=== PATIENT | female | born 1965 | race Caucasian/White ===

== ENCOUNTER 2019-09-10 11:49 | Inpatient (IN) ==
[2019-09-10] MEDS ORDERED: MoRPHine SULFATE 4 MG/ML 1 ML CARP\\VIAL IV STA ×2 (12:56→13:59)
[2019-09-10] MEDS ORDERED: PROMETHAZINE 12.5 MG/50.5 ML BAG IV STA (12:58)
[2019-09-10] MEDS ORDERED: SODIUM CHLORIDE 0.9% 1000ML 1,000 ML IV SCH (13:00)
--- NOTE | 2019-09-10 13:04 | Emergency Department Note ---
History of Present Illness General Chief complaint: Abdominal Pain Stated complaint: PAIN ALL OVER,CANCER PT Time Seen by Provider: 09/10/19 12:48 History of Present Illness Maximum Pain Intensity: 10 This is a 54-year-old female that presents to the emergency department via private vehicle with complaints of "pain all over, history of cancer". The patient states that beginning today around 10 AM she began with diffuse chest/backslash abdominal discomfort. 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 She is currently receiving chemotherapy through the cancer treatment center in [place]. She is concerned she may have an obstruction. Last food consumed was 0930. Last bowel movement was this morning and was normal. No blood in the bowel movement. She feels nauseous but has not vomited. She rates her overall discomfort at this time as a 10/10. No history of obstructions. Home Medications Home Medications Medication Instructions Recorded Confirmed Type capecitabine [Xeloda] See Rx Instructions .ROUTE .COMPLEX 06/03/19 09/10/19 History Saccharomyces boulardii [Florastor] 250 mg PO BID #20 cap 06/04/19 09/10/19 Rx ondansetron 4 mg PO Q6H PRN #14 tab 06/04/19 09/10/19 Rx filgrastim-sndz [Zarxio] 480 mcg IV DIRECTED 09/10/19 09/10/19 History Allergies Allergy/AdvReac Type Severity Reaction Status Date / Time epinephrine Allergy Intermediate heart Verified 09/10/19 12:23 palpitations, itching, rash, muscle pain lidocaine Allergy Intermediate heart Verified 09/10/19 12:23 palpitations, itching rash muscle pain Penicillins Allergy Mild rash and Verified 09/10/19 12:23 fever amoxicillin AdvReac Mild fever, rash Verified 09/10/19 12:23 Past Med/Surg History Medical History (Updated 09/10/19 @ 17:18 by Curly Tyson MD) Acid reflux Anxiety 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 no chemo or radiation Depression Duodenal adenocarcinoma Fibromyalgia Hyperlipidemia Migraine hx of and no longer a problem Surgical History History of tubal ligation Hx of bilateral breast reduction surgery (2013) S/P total hysterectomy and bilateral salpingo-oophorectomy d/t endometriosis Family History Mother Myocardial infarction, Onset Age: 58 Anxiety Uterine cancer Depression Diabetes Heart disease Hypertension Kidney disease Lung disease Lung cancer Multiple sclerosis Grandmother (Paternal) Colorectal cancer Breast cancer Father Prostate cancer, Onset Age: 72 Gallbladder disease Hypertension Brother Anxiety Drug abuse Hypertension Kidney stones Grandmother (Maternal) Anxiety Gallbladder disease Aunt Stomach cancer, Onset Age: 67 Esophageal cancer, Onset Age: 67 Denies family history of Ovarian cancer Social History Preferred Language: Kyrgyz Communication Ability: Effective Visual Impairment: No Limitations Hearing Ability: Normal Critical Care Specialist Required: No Beliefs That Will Affect Care: None marital status: Current Living Situation: Spouse Current Living Situation Comment: spouse and 7 children current occupational status: other current occupation: homemaker Other Information That Helps Us Care for You: No Feels Safe at Home: Yes Safety Concerns: Feels Safe At This Time Smoking Status: Never smoker Tobacco Type: cigarettes ; Age Started Using Tobacco: 17 ; Age Quit Using Tobacco: 38 ; packs per day: 0.75 ; Second Hand Exp osure: No ; Hx Alcohol Use: No Hx Substance Use: No Dental Care, Regularly: Yes Physical Activity Frequency: 1-2 Times per Week Physical Activity Frequency Comment: walking Seatbelt Use: always Review of Systems A total of 10 systems reviewed and were otherwise negative Physical Exam Vital Signs Vital Signs - 24 hr 09/10/19 12:01 09/10/19 13:00 09/10/19 13:30 Temperature 36.8 C Temperature Source Oral Pulse Rate 82 112 H 106 H Pulse Rate from SpO2 Sensor 112 H Respiratory Rate 18 24 26 H Respiratory Depth Normal Blood Pressure 115/74 130/76 Blood Pressure Mean 87 81 Pulse Oximetry 99 98 Oxygen Delivery Method Room Air Oxygen Flow Rate Sepsis Recent Fever Within 48 Hours No Sepsis New/Unexplained Change in Mental Status No Sepsis Action Taken by Nursing No Action Required Oxygen Flow Rate - Titration Pulse Oximetry Post Tiitration 09/10/19 13:34 09/10/19 14:00 09/10/19 14:30 Temperature Temperature Source Pulse Rate 107 H 109 H 116 H Pulse Rate from SpO2 Sensor Respiratory Rate 19 24 23 Respiratory Depth Blood Pressure 144/68 H 140/71 127/61 Blood Pressure Mean 96 96 83 Pulse Oximetry Oxygen Delivery Method Oxygen Flow Rate Sepsis Recent Fever Within 48 Hours Sepsis New/Unexplained Change in Mental Status Sepsis Action Taken by Nursing Oxygen Flow Rate - Titration Pulse Oximetry Post Tiitration 09/10/19 15:00 09/10/19 15:32 09/10/19 16:00 Temperature Temperature Source Pulse Rate 116 H 110 H 108 H Pulse Rate from SpO2 Sensor 110 H 108 H Respiratory Rate 23 24 13 Respiratory Depth Blood Pressure 116/61 144/70 H 107/59 L Blood Pressure Mean 77 94 72 Pulse Oximetry 94 92 Oxygen Delivery Method Oxygen Flow Rate Sepsis Recent Fever Within 48 Hours Sepsis New/Unexplained Change in Mental Status Sepsis Action Taken by Nursing Oxygen Flow Rate - Titration Pulse Oximetry Post Tiitration 09/10/19 16:30 09/10/19 16:35 09/10/19 17:00 Temperature Temperature Source Pulse Rate 115 H 111 H Pulse Rate from SpO2 Sensor 115 H 111 H Respiratory Rate 19 20 Respiratory Depth Blood Pressure 100/51 L 100/49 L Blood Pressure Mean 67 60 Pulse Oximetry 87 L 87 L 95 Oxygen Delivery Method Room Air Room Air Nasal Cannula Nasal Cannula Oxygen Flow Rate 0 2 Sepsis Recent Fever Within 48 Hours Sepsis New/Unexplained Change in Mental Status Sepsis Action Taken by Nursing Oxygen Flow Rate - Titration 2 Pulse Oximetry Post Tiitration 97 09/10/19 17:01 Temperature Temperature Source Pulse Rate 113 H Pulse Rate from SpO2 Sensor 112 H Respiratory Rate 20 Respiratory Depth Blood Pressure Blood Pressure Mean Pulse Oximetry 95 Oxygen Delivery Method Nasal Cannula Oxygen Flow Rate 2 Sepsis Recent Fever Within 48 Hours Sepsis New/Unexplained Change in Mental Status Sepsis Action Taken by Nursing Oxygen Flow Rate - Titration Pulse Oximetry Post Tiitration VITAL SIGNS - Vital signs and nursing notes were reviewed. Stable and afebrile. GENERAL 54-year-old female appearing her age who is appearing to be in pain, is in the position laying on her right side with the eyes closed. Communicates well with provider and answers questions appropriately. SKIN -faint erythema noted to the eye regions which appears to be chronic. HEAD - NC/AT. EYES - PERRL with EOMI bilaterally. Sclera anicteric. EARS - No deformities of external structures noted on gross examination bilaterally. NOSE - Midline and without cyanosis. No epistaxis or purulent drainage noted. Septum midline without deviation or septal hematoma noted. MOUTH/OROPHARYNX - Without perioral cyanosis. NECK - Neck with FROM. No nuchal rigidity. LUNGS - Chest wall symmetric without accessory muscle use, intercostals retractions, or central cyanosis. Normal vesicular breath sounds CTA B/L. No wheezes, rales, or rhonchi appreciated. CARDIAC - RRR with S1/S2. No murmur, rubs, or gallops appreciated. ABDOMEN - Abdominal contour normal without pulsations or visible masses. BS normoactive all four quadrants. No palpable masses appreciated on examination but there is diffuse abdominal tenderness. EXTREMITIES - No clubbing or peripheral cyanosis. No pretibial edema present. +5/5 strength noted in UE/LE bilaterally. NEUROLOGIC - Cranial nerves II through XII grossly intact. PSYCH - A&Ox3 and cooperates fully with examiner. Pt is very pleasant and interacts well with examiner. Course Administered Medications Lactated Ringer's (Lr) 1,000 mls @ 999 mls/hr IV .Q1H1M ONE Stop: 09/10/19 17:53 Last Admin: 09/10/19 17:20 Dose: 999 mls/hr Documented by: [id number] Ioversol (Optiray 320 125ml) 116 ml IV ONCE PRN PRN Reason: Interaction Checking Stop: 09/14/19 15:14 Last Admin: 09/10/19 15:18 Dose: 116 ml Documented by: [id number] Discontinued Medications Famotidine (Pepcid 20mg Iv Push) 20 mg IV ONE STA Stop: 09/10/19 16:55 Last Admin: 09/10/19 17:18 Dose: 20 mg Documented by: [id number] Sodium Chloride (Nss 1000ml) 1,000 mls @ 999 mls/hr IV .Q1H1M ZHANE Stop: 09/10/19 14:00 Last Infusion: 09/10/19 14:22 Dose: 0 mls/hr Documented by: [id number] Admin: 09/10/19 13:21 Dose: 999 mls/hr Documented by: [id number] Promethazine HCl (Phenergan) 12.5 mg in 50.5 mls @ 202 mls/hr IV NOW STA Stop: 09/10/19 13:12 Last Infusion: 09/10/19 13:40 Dose: 0 mls/hr Documented by: [id number] Admin: 09/10/19 13:25 Dose: 202 mls/hr Documented by: [id number] Morphine Sulfate (Morphine Sulfate) 4 mg IV NOW STA Stop: 09/10/19 12:57 Last Admin: 09/10/19 13:22 Dose: 4 mg Documented by: [id number] Morphine Sulfate (Morphine Sulfate) 4 mg IV NOW STA Stop: 09/10/19 14:00 Last Admin: 09/10/19 14:04 Dose: 4 mg Documented by: [id number] Medical Decision Making Laboratory Data Result diagrams: 09/10/19 13:10 09/10/19 13:10 Lab Results 09/10/19 09/10/19 09/10/19 Range/Units 13:10 13:10 13:10 WBC 4.68 L (4.8-10.8) K/uL RBC 3.31 L (4.2-5.4) M/uL Hgb 11.9 L (12.0-16.0) g/dL Hct 35.0 L (37-47) % MCV 105.7 H (80-100) fL MCH 36.0 H (25-34) pg MCHC 34.0 (32-36) g/dL RDW Std Deviation 60.5 H (36.4-46.3) fL RDW Coeff of Sarai 15.8 H (11.5-14.5) % Plt Count 73 L (130-400) K/uL Immature Gran % (Auto) 0.4 % Neut % (Auto) 91.7 % Lymph % (Auto) 4.9 % Sully % (Auto) 2.4 % Eos % (Auto) 0.6 % Baso % (Auto) 0.0 % Immature Gran # (Auto) 0.02 (0.00-0.02) K/uL Neut # (Auto) 4.29 (1.4-6.5) K/uL Lymph # (Auto) 0.23 L (1.2-3.4) K/uL Sully # (Auto) 0.11 (0.11-0.59) K/uL Eos # (Auto) 0.03 (0-0.5) K/uL Baso # (Auto) 0.00 (0-0.2) K/uL Platelet Estimate Decreased L (Normal) Tear Drop Cells 1+ PT 10.7 (9.0-12.0) Seconds INR 1.0 (0.9-1.1) APTT 25.7 (21.0-31.0) Seconds PTT Ratio 0.9 Sodium 137 (136-145) mmol/L Potassium 4.0 (3.5-5.1) mmol/L Chloride 105 (98-107) mmol/L Carbon Dioxide 26 (21-32) mmol/L Anion Gap 6.0 (3-11) BUN 9 (7-18) mg/dl Creatinine 0.66 (0.6-1.2) mg/dl Est Cr Clr Drug Dosing 105.0 ml/min Est GFR ( Amer) 114.5 Est GFR (Non-Af Amer) 98.8 BUN/Creatinine Ratio 14.3 (10-20) Glucose 110 H (70-99) mg/dl Lactate (0.4-2.0) mmol/L Calcium 9.6 (8.5-10.1) mg/dl Magnesium 1.8 (1.8-2.4) mg/dl Total Bilirubin 2.5 H (0.2-1) mg/dl AST 147 H (15-37) U/L ALT 69 (12-78) U/L Alkaline Phosphatase 278 H (45-117) U/L Troponin I < 0.015 (0-0.045) ng/ml Total Protein 7.0 (6.4-8.2) gm/dl Albumin 3.2 L (3.4-5.0) gm/dl Globulin 3.8 (2.5-4.0) gm/dl Albumin/Globulin Ratio 0.9 (0.9-2) Lipase 79 (73-393) U/L Urine Color Urine Appearance (Clear) Urine pH (4.5-7.5) Ur Specific Clark (1.000-1.030) Urine Protein (Negative) Urine Glucose (UA) (Negative) Urine Ketones (Negative) Urine Blood (Negative) Urine Nitrite (Negative) Urine Bilirubin (Negative) Urine Urobilinogen (Negative) Ur Leukocyte Esterase (Negative) 09/10/19 09/10/19 Range/Units 13:10 13:10 WBC (4.8-10.8) K/uL RBC (4.2-5.4) M/uL Hgb (12.0-16.0) g/dL Hct (37-47) % MCV (80-100) fL MCH (25-34) pg MCHC (32-36) g/dL RDW Std Deviation (36.4-46.3) fL RDW Coeff of Sarai (11.5-14.5) % Plt Count (130-400) K/uL Immature Gran % (Auto) % Neut % (Auto) % Lymph % (Auto) % Sully % (Auto) % Eos % (Auto) % Baso % (Auto) % Immature Gran # (Auto) (0.00-0.02) K/uL Neut # (Auto) (1.4-6.5) K/uL Lymph # (Auto) (1.2-3.4) K/uL Sully # (Auto) (0.11-0.59) K/uL Eos # (Auto) (0-0.5) K/uL Baso # (Auto) (0-0.2) K/uL Platelet Estimate (Normal) Tear Drop Cells PT (9.0-12.0) Seconds INR (0.9-1.1) APTT (21.0-31.0) Seconds PTT Ratio Sodium (136-145) mmol/L Potassium (3.5-5.1) mmol/L Chloride (98-107) mmol/L Carbon Dioxide (21-32) mmol/L Anion Gap (3-11) BUN (7-18) mg/dl Creatinine (0.6-1.2) mg/dl Est Cr Clr Drug Dosing ml/min Est GFR ( Amer) Est GFR (Non-Af Amer) BUN/Creatinine Ratio (10-20) Glucose (70-99) mg/dl Lactate 2.0 (0.4-2.0) mmol/L Calcium (8.5-10.1) mg/dl Magnesium (1.8-2.4) mg/dl Total Bilirubin (0.2-1) mg/dl AST (15-37) U/L ALT (12-78) U/L Alkaline Phosphatase (45-117) U/L Troponin I (0-0.045) ng/ml Total Protein (6.4-8.2) gm/dl Albumin (3.4-5.0) gm/dl Globulin (2.5-4.0) gm/dl Albumin/Globulin Ratio (0.9-2) Lipase (73-393) U/L Urine Color Yellow Urine Appearance Clear (Clear) Urine pH 6.5 (4.5-7.5) Ur Specific Clark 1.013 (1.000-1.030) Urine Protein Negative (Negative) Urine Glucose (UA) Negative (Negative) Urine Ketones Negative (Negative) Urine Blood Negative (Negative) Urine Nitrite Negative (Negative) Urine Bilirubin Negative (Negative) Urine Urobilinogen Negative (Negative) Ur Leukocyte Esterase Negative (Negative) Imaging Data Radiologist's Impression: XR chest 1V portable HISTORY: 54 years-old Female chest and abd pain acute chest and abdominal pain COMPARISON: PET CT 03/19/2019, chest radiograph 06/03/2019 TECHNIQUE: Portable AP view the chest FINDINGS: Cardiac silhouette is mildly enlarged, unchanged. Right subclavian Uvcvzx-y-Uisr catheter is unchanged. There is no pneumothorax, pleural effusion, airspace consolidation or overt pulmonary edema. IMPRESSION: No acute process. ACT 112: Negative or not required by law. The above report was generated using voice recognition software. It may contain grammatical, syntax or spelling errors. Electronically signed by: Kenneth Hook M.D. 09/10/2019 1:[address] ANGIOGRAPHY OF THE CHEST, PULMONARY EMBOLUS PROTOCOL CLINICAL HISTORY: Shortness of breath. COMPARISON STUDY: PET/CT March 19, 2019. Chest radiograph performed earlier today. TECHNIQUE: Following IV administration of 116 mL of Optiray-320, helical axial images of the chest were obtained utilizing the pulmonary embolus protocol. Maximal intensity projections and sagittal and coronal reformats were viewed on an independent 3D workstation. IV contrast was administered without complication. Automated exposure control was utilized for the study. A dose lowering technique was utilized adhering to the principles of ALARA. CT DOSE: 1371.26 mGycm FINDINGS: No pulmonary emboli are identified. A right subclavian Svjrhe-t-Cobc is in place. The size of the heart is at the upper limits of normal. There is no pericardial effusion. No enlarged axillary, mediastinal or hilar lymph nodes are present. The enlarged left supraclavicular lymph nodes on PET/CT of March 19, 2019 are now normal in size. Central airways are patent. Groundglass opacities favor atelectasis. There is no consolidation to suggest pneumonia. Mild interlobular septal thickening is noted. Abdomen and pelvis will be reported separately. Biliary ductal dilatation is better depicted on that exam. IMPRESSION: 1. No pulmonary emboli identified. 2. No consolidation to suggest pneumonia. 3. Interlobular septal thickening which favors mild pulmonary edema. 4. Interval decrease in size of the left supraclavicular lymphadenopathy shown on PET/CT of March 19, 2019. ACT 112: Negative or not required by law. Electronically signed by: Manuel Clemons M.D. 09/10/2019 3:43 PM A[address]EN AND PELVIS CT WITH IV CONTRAST HISTORY: Chest and abdominal pain in a patient with history of duodenal carcinoma chest and abd pain, stage 4 adenocarcinoma TECHNIQUE: Multiaxial CT images of the abdomen and pelvis were performed following the IV administration of 116 cc of Optiray 320, A dose lowering technique was utilized adhering to the principles of ALARA. COMPARISON STUDY: CTA chest of same day, CT abdomen and pelvis 06/03/2019 FINDINGS: The lung bases are generally clear. No pneumatosis or pneumoperitoneum. The spleen is enlarged measuring up to 15.9 cm in length, previously measuring up to 14.3 cm. Unremarkable adrenal glands. Moderate generalized pancreatic atrophy. 11 mm lesion of the inferior right hepatic lobe as previously described is not definitively seen on today's study. There is moderate gallbladder distention with mild gallbladder wall thickening and mucosal hyperenhancement which is unchanged from comparison. There is enhancement of the biliary tree with moderate intrahepatic biliary ductal dilation, unchanged. Debris, air and fluid is noted within the common bile duct stent which appears to be in satisfactory stable positioning. Unchanged wall thickening involving the second portion of the duodenum is compatible with patient's known primary carcinoma. No new or progressive adenopathy. There is mild inflammatory stranding stranding the uncinate process of the pancreas and proximal duodenum descending into the mid mesentery. Air is noted within the pancreatic duct. Duodenal air-fluid level. No bowel obstruction. Mild wall thickening of the ascending colon is likely secondary to partial distention. Appendix not definitively seen Unremarkable appearance of the kidneys. Moderate urinary bladder distention. Hysterectomy. No adnexal mass lesions. Calcified plaque the abdominal aorta without aneurysm. Soft tissues are unremarkable. Bones appear intact. No suspicious bone lesions. IMPRESSION: 1. Unchanged wall thickening involving the second portion the duodenum corresponds to the patient's known primary duodenal carcinoma. 2. No new adenopathy or evidence of progressive metastatic disease. 3. Mild inflammatory stranding surrounding the uncinate process of the pancreas and duodenum may be on a posttreatment related basis versus acute pancreatitis. Correlate with lipase. 4. Stable positioning of the common bile duct stent. 5. Moderate gallbladder distention with gallbladder wall thickening, intrahepatic and extrahepatic biliary ductal dilation appears similar from comparison. 6. Additional findings as above. ACT 112: Negative or not required by law. The above report was generated using voice recognition software. It may contain grammatical, syntax or spelling errors. Electronically signed by: Kenneth Hook M.D. 09/10/2019 3:50 PM MDM Narrative Patient was seen and evaluated as above in room a 11. Review was performed of nursing notes and vital signs. I did review pertinent previous visits and patient history. After obtaining a thorough history and physical examination the above work up was performed. Patient has a history of stage IV adenocarcinoma of the duodenum. Today around 10 AM she began with severe chest and abdominal discomfort. She appears to be in a great deal of pain on examination. IV access was established. Labs were drawn. She was medicated with IV morphine and she notes that she did not do well with Zofran therefore Phenergan was given as she had this before she notes with relief. She was reevaluated with minimal improvement and more morphine was added. She was hydrated with fluids noting that she was tachycardic on arrival. Blood cultures and lactic acid were also drawn. CBC reveals pancytopenia. Platelet count is decreased here today at 73. Coags are normal. Metabolic panel reveals no evidence of kidney failure. T bili and AST are elevated. Alk phos 278. Troponin is negative. Urinalysis is negative. An EKG was obtained on arrival per my interpretation reveals normal sinus rhythm the rate of 77 bpm. QTc 418. There is no evidence of [facility] on this examination. A CT scan of the chest/abdomen pelvis were ordered given the patient's tachycardic state noting diffuse abdominal and chest discomfort on presentation. Given the patient's history of cancer is felt that these are warranted. Results as above. Interlobular septal thickening favoring mild pulmonary edema, there is also unchanged wall thickening following the second portion of the duodenum, noninflammatory strandings evolving the [place] process of the pancreas and duodenum may be on a posttreatment basis versus acute pancreatitis, moderate gallbladder distention but this is similar to previous. The patient although by CT does not exhibit any emergent surgical process I do believe that further evaluation in the inpatient setting is warranted as she is persistently tachycardic despite fluid hydration here, and given the history of malignancy with presentation to believe that this would be warranted. I discussed the case with the hospitalist. While in the department, I personally reevaluated the patient several times and each time the patient was found to be resting comfortably but appeared to be tired. She was informed upon findings and was amenable to staying. No evidence of infectious process on examination for source. Cultures pending. Lactic acid normal. Case was discussed with the attending physician. EKG was reviewed by myself and found to be Normal Sinus Rhythm at a rate of 77 beats per minute and per my interpretation reveals normal sinus rhythm with a QTC of 418. No definite ST elevation. And when compared to previous EKG of June 03, 2019 is similar. An order was placed for continuous cardiac monitoring. The monitor shows a rate of 113 bpm with sinus tachycardia. I attest that I have personally reviewed the patient medication list. I attest that I have reviewed the patient's blood pressure and it was found to be normal on arrival. GCS: 15 In the evaluation and treatment of this patient, the following differential diagnoses were considered: MN, ASC, Dysrhythmia, Angina, Mediastinitis, GERD, Esophagitis, PE, Pneumonia, Bronchitis, Costochondritis, Rib Fracture, Ascending Cholangitis, Cholydocholithiasis, Bowel Obstruction, PE, Amongst Others. Impression & Plan Acute generalized abdominal pain, Duodenal adenocarcinoma, Acute pancreatitis Discharge Plan Visit Data Chief Complaint: Abdominal Pain Stated Complaint: PAIN ALL OVER,CANCER PT ED Provider: Brandt Vance ED Midlevel Provider: Carlos Mon Discharge Problem: Acute generalized abdominal pain, Duodenal adenocarcinoma, Acute pancreatitis Forms Stand Alone Forms: My [facility] [email or web address] Prescriptions Prescriptions: No Action capecitabine [Xeloda] 500 mg tablet See Rx Instructions .ROUTE .COMPLEX RF: 0 ondansetron 4 mg tablet,disintegrating 4 mg PO Q6H PRN (Reason: nausea and vomiting) Qty: 14 RF: 0 Saccharomyces boulardii [Florastor] 250 mg capsule 250 mg PO BID Qty: 20 RF: 0 Zarxio 480 mcg/0.8 mL syringe 480 mcg IV DIRECTED RF: 0 Referrals Referrals: Jenny Valdez DO [Primary Care Provider] -
--- NOTE | 2019-09-10 13:13 | XRay Report ---
XR chest 1V portable HISTORY: 54 years-old Female chest and abd pain acute chest and abdominal pain COMPARISON: PET CT 03/19/2019, chest radiograph 06/03/2019 TECHNIQUE: Portable AP view the chest FINDINGS: Cardiac silhouette is mildly enlarged, unchanged. Right subclavian Qojxjx-l-Atpi catheter is unchange d. There is no pneumothorax, pleural effusion, airspace consolidation or overt pulmonary edema. IMPRESSION: No acute process. ACT 112: Negative or not required by law. The above report was generated using voice recognition software. It may contain grammatical, syntax o r spelling errors. Electronically signed by: Kenneth Hook M.D. 09/10/2019 1:12 PM
[2019-09-10 13:27] LABS: Appearance Urine Clear (Clear); Bilirubin Urine Negative (Negative); Blood Urine Negative (Negative); Color Urine Yellow; Glucose Urine UA Negative (Negative); Ketones Urine Negative (Negative); Leukocyte Esterase Urine Negative (Negative); Nitrite Urine Negative (Negative); Protein Urine Negative (Negative); Specific Gravity Urine 1.013 (1.000-1.030); Urobilinogen Urine Negative (Negative); pH Urine 6.5 (4.5-7.5)
[2019-09-10 13:39] LABS: Hemoglobin 11.9 g/dL (12.0-16.0); Mean Corpuscular Volume 105.7 fL (80-100); Partial Thromboplastin Ratio 0.9; Partial Thromboplastin Time 25.7 Seconds (21.0-31.0); Prothrombin Time 10.7 Seconds (9.0-12.0); RDW Coefficient of Variation 15.8 % (11.5-14.5); RDW Standard Deviation 60.5 fL (36.4-46.3); Red Blood Count 3.31 M/uL (4.2-5.4); White Blood Count 4.68 K/uL (4.8-10.8)
[2019-09-10 13:44] LABS: Platelet Count 73 K/uL (130-400)
[2019-09-10 13:45] LABS: Alanine Aminotransferase 69 U/L (12-78); Albumin Level 3.2 gm/dl (3.4-5.0); Aspartate Aminotransferase 147 U/L (15-37); BUN Creatinine Ratio 14.3 (10-20); Blood Urea Nitrogen 9 mg/dl (7-18); Calcium 9.6 mg/dl (8.5-10.1); Carbon Dioxide 26 mmol/L (21-32); Chloride 105 mmol/L (98-107); Est GFR (African American) 114.5; Est GFR (Non-African American) 98.8; Glucose 110 mg/dl (70-99); Lipase 79 U/L (73-393); Magnesium 1.8 mg/dl (1.8-2.4); Sodium 137 mmol/L (136-145)
[2019-09-10 13:50] LABS: Albumin Globulin Ratio 0.9 (0.9-2); Alkaline Phosphatase 278 U/L (45-117); Bilirubin,Total 2.5 mg/dl (0.2-1); Globulin 3.8 gm/dl (2.5-4.0); Troponin I < 0.015 ng/ml (0-0.045)
[2019-09-10 13:57] LABS: Eosinophils # (auto) 0.03 K/uL (0-0.5); Eosinophils % (auto) 0.6 %; Immature Granulocytes # (auto) 0.02 K/uL (0.00-0.02); Immature Granulocytes % (auto) 0.4 %; Lymphocytes # (auto) 0.23 K/uL (1.2-3.4); Lymphocytes % (auto) 4.9 %; Monocytes # (auto) 0.11 K/uL (0.11-0.59); Monocytes % (auto) 2.4 %; Neutrophils # (auto) 4.29 K/uL (1.4-6.5); Neutrophils % (auto) 91.7 %; Platelet Estimate Decreased (Normal); Tear Drop Cells 1+
[2019-09-10] MEDS ORDERED: OPTIRAY 320 125ml IV PRN (15:15)
--- NOTE | 2019-09-10 15:44 | CT Scan Report ---
CT ANGIOGRAPHY OF THE CHEST, PULMONARY EMBOLUS PROTOCOL CLINICAL HISTORY: Shortness of breath. COMPARISON STUDY: PET/CT March 19, 2019. Chest radiograph performed earlier today. TECHNIQUE: Following IV administration of 116 mL of Optiray-320, helical axial images of the chest we re obtained utilizing the pulmonary embolus protocol. Maximal intensity projections and sagittal and coronal reformats were viewed on an independent 3D workstation. IV contrast was administered withou t complication. Automated exposure control was utilized for the study. A dose lowering technique wa s utilized adhering to the principles of ALARA. CT DOSE: 1371.26 mGycm FINDINGS: No pulmonary emboli are identified. A right subclavian Qkjqxm-n-Fanj is in place. The size of the heart is at the upper limits of normal. There is no pericardial effusion. No enlarged axillar y, mediastinal or hilar lymph nodes are present. The enlarged left supraclavicular lymph nodes on PET /CT of March 19, 2019 are now normal in size. Central airways are patent. Groundglass opacities fa vor atelectasis. There is no consolidation to suggest pneumonia. Mild interlobular septal thickening is noted. Abdomen and pelvis will be reported separately. Biliary ductal dilatation is better depicte d on that exam. IMPRESSION: 1. No pulmonary emboli identified. 2. No consolidation to suggest pneumonia. 3. Interlobular septal thickening which favors mild pulmonary edema. 4. Interval decrease in size of the left supraclavicular lymphadenopathy shown on PET/CT of March 19, 2019. ACT 112: Negative or not required by law. Electronically signed by: Manuel Clemons M.D. 09/10/2019 3:43 PM
--- NOTE | 2019-09-10 15:51 | CT Scan Report ---
ABDOMEN AND PELVIS CT WITH IV CONTRAST HISTORY: Chest and abdominal pain in a patient with history of duodenal carcinoma chest and abd pain , stage 4 adenocarcinoma TECHNIQUE: Multiaxial CT images of the abdomen and pelvis were performed following the IV administrat ion of 116 cc of Optiray 320, A dose lowering technique was utilized adhering to the principles of A BRANDT. COMPARISON STUDY: CTA chest of same day, CT abdomen and pelvis 06/03/2019 FINDINGS: The lung bases are generally clear. No pneumatosis or pneumoperitoneum. The spleen is enlarged measur ing up to 15.9 cm in length, previously measuring up to 14.3 cm. Unremarkable adrenal glands. Moderat e generalized pancreatic atrophy. 11 mm lesion of the inferior right hepatic lobe as previously descr ibed is not definitively seen on today's study. There is moderate gallbladder distention with mild ga llbladder wall thickening and mucosal hyperenhancement which is unchanged from comparison. There is e nhancement of the biliary tree with moderate intrahepatic biliary ductal dilation, unchanged. Debris, air and fluid is noted within the common bile duct stent which appears to be in satisfactory stable positioning. Unchanged wall thickening involving the second portion of the duodenum is compatible wit h patient's known primary carcinoma. No new or progressive adenopathy. There is mild inflammatory str anding stranding the uncinate process of the pancreas and proximal duodenum descending into the mid m esentery. Air is noted within the pancreatic duct. Duodenal air-fluid level. No bowel obstruction. Mi ld wall thickening of the ascending colon is likely secondary to partial distention. Appendix not def initively seen Unremarkable appearance of the kidneys. Moderate urinary bladder distention. Hysterectomy. No adnexal mass lesions. Calcified plaque the abdominal aorta without aneurysm. Soft tissues are unremarkable. Bones appear intact. No suspicious bone lesions. IMPRESSION: 1. Unchanged wall thickening involving the second portion the duodenum corresponds to the patient's k nown primary duodenal carcinoma. 2. No new adenopathy or evidence of progressive metastatic disease. 3. Mild inflammatory stranding surrounding the uncinate process of the pancreas and duodenum may be o n a posttreatment related basis versus acute pancreatitis. Correlate with lipase. 4. Stable positioning of the common bile duct stent. 5. Moderate gallbladder distention with gallbladder wall thickening, intrahepatic and extrahepatic bi liary ductal dilation appears similar from comparison. 6. Additional findings as above. ACT 112: Negative or not required by law. The above report was generated using voice recognition software. It may contain grammatical, syntax o r spelling errors. Electronically signed by: Kenneth Hook M.D. 09/10/2019 3:50 PM
--- NOTE | 2019-09-10 16:40 | History & Physical Report ---
Date of Service September 10, 2019 Assessment & Plan (1) Epigastric pain: Unclear exact etiology but inflammation on CT suggestive of pancreatitis although lipase normal (?due to atrophy). Possible just gastritis after stopping pantoprazole in May Possible temporary obstruction (duodenal or biliary) now relieved with secondary duodenitis No infective source found but if febrile overnight, start antibiotics empirically for abdominal (suspect duodenal/biliary source) and follow blood cultures ?prior episode due to biliary obstruction relieved with stent (2) Acute pancreatitis: Based on imaging and epigastric pain. IV fluids total 3L bolus, then LR 150ml/hr overnight IV ondansetron PRN, Phenergan PRN for nausea or vomiting Dilaudid PRN for pain MRCP to assess biliary patency with stent Repeat CMP in AM to assess if LFTs continue to increase Consult gastroenterology for AM (3) Acid reflux: Recently stopped PPI in May. May explain some of her epigastric pain IV famotidine given in ER, will continue (4) Duodenal adenocarcinoma: Stage IV On palliative chemotherapy with Oxaliplatin and Xeloda (cycle 7). CT in May was after cycle 4. Under [facility] in [place] (Dr Curtis Ellison) (5) Thrombocytopenia: Monitor in AM. If not decreasing can start on VTE chemical prophylaixs (6) Rash: Patient reports plan for biopsy for this but it reoccurs every year, worse on chemotherapy and having moved with more pine tree pollen. Monitor for now (7) DVT prophylaxis: SCDs If platelets > 50 and no plan for intervention can start chemical prophylaxis tomorrow Admission and Anticipated Discharge Date Admission Date: 09/10/2019 History of Present Illness Chief Complaint: Epigastric pain Primary Care Provider: DO Suzanne Luo is a 54 year old female with stage IV duodenal adenocarcinoma who presents to the ER with sudden onset abdominal pain. She reports sudden onset severe 10/10 epigastric pain that radiates around her back, started approximately 10-15 minutes after eating breakfast this morning (tea with honey and peanut butter toast) which was not unusual for her. She reports having a similar pain back in April although milder at that time when she was diagnosed with biliary obstruction and reported having a nerve block and biliary stent placed in [place]. After the pain started she called her oncology office in [place] and advised her to go to the ER. She denies any fevers or chills but has always been cold since starting on her chemotherapy oxaliplatin and Xeloda. Zarxio listed as medication but only required this once when her counts were low in July. Allergies Allergy/AdvReac Type Severity Reaction Status Date / Time epinephrine Allergy Intermediate heart Verified 09/10/19 12:23 palpitations, itching, rash, muscle pain lidocaine Allergy Intermediate heart Verified 09/10/19 12:23 palpitations, itching rash muscle pain Penicillins Allergy Mild rash and Verified 09/10/19 12:23 fever amoxicillin AdvReac Mild fever, rash Verified 09/10/19 12:23 Home Medications Home Medications Medication Instructions Recorded Confirmed Type capecitabine [Xeloda] See Rx Instructions .ROUTE .COMPLEX 06/03/19 09/10/19 History Saccharomyces boulardii [Florastor] 250 mg PO BID #20 cap 06/04/19 09/10/19 Rx ondansetron 4 mg PO Q6H PRN #14 tab 06/04/19 09/10/19 Rx filgrastim-sndz [Zarxio] 480 mcg IV DIRECTED 09/10/19 09/10/19 History Past Med/Surg History Medical History (Updated 09/11/19 @ 06:47 by Curly Tyson MD) Acid reflux Anxiety 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 no chemo or radiation Depression Duodenal adenocarcinoma Fibromyalgia Hyperlipidemia Migraine hx of and no longer a problem Surgical History History of tubal ligation Hx of bilateral breast reduction surgery (2013) S/P total hysterectomy and bilateral salpingo-oophorectomy d/t endometriosis Family History Mother Myocardial infarction, Onset Age: 58 Anxiety Uterine cancer Depression Diabetes Heart disease Hypertension Kidney disease Lung disease Lung cancer Multiple sclerosis Grandmother (Paternal) Colorectal cancer Breast cancer Father Prostate cancer, Onset Age: 72 Gallbladder disease Hypertension Brother Anxiety Drug abuse Hypertension Kidney stones Grandmother (Maternal) Anxiety Gallbladder disease Aunt Stomach cancer, Onset Age: 67 Esophageal cancer, Onset Age: 67 Denies family history of Ovarian cancer Social History Preferred Language: Latvian Communication Ability: Effective Visual Impairment: No Limitations Hearing Ability: Normal Material Planning Analyst Required: No Beliefs That Will Affect Care: None marital status: Current Living Situation: Spouse Current Living Situation Comment: spouse and 7 children current occupational status: other current occupation: homemaker Other Information That Helps Us Care for You: No Feels Safe at Home: Yes Safety Concerns: Feels Safe At This Time Smoking Status: Never smoker Tobacco Type: cigarettes ; Age Started Using Tobacco: 17 ; Age Quit Using Tobacco: 38 ; packs per day: 0.75 ; Second Hand Exposure: No ; Hx Alcohol Use: No Hx Substance Use: No Dental Care, Regularly: Yes Physical Activity Frequency: 1-2 Times per Week Physical Activity Frequency Comment: walking Seatbelt Use: always Review of Systems Review of Systems: All systems reviewed & are unremarkable except as noted in HPI & below Physical Exam Constitutional: well developed and + acute distress (epigastric pain); + not well nourished Eyes: PERRL, conjunctivae normal, anicteric sclerae ENMT: external ear and nose normal, oropharynx normal Neck: trachea midline, no thyromegaly Respiratory: normal respiratory effort; no respiratory distress Auscultation: lungs clear to auscultation bilaterally; no crackles, no rales, no rhonchi and no wheezes Cardiovascular: Rate/Rhythm: regular rhythm and + tachycardic Heart Sounds: no murmur Vessels: no JVD Extremities: normal capillary refill; no calf tenderness and no pedal edema Gastrointestinal (Abdomen): Percussion/Palpation: + abdomen tender (epigatric > diffuse) and abdomen soft; no guarding and abdomen not rigid Musculoskeletal: no cyanosis or clubbing, extremities motor strength 5/5 (grossly normal) Skin: multiple distinct multiple erythematous plaques around left eye and on back of bilateral hands Neurologic: moves all extremities and awake; no focal motor deficits Psychiatric: A+Ox3, euthymic affect Genitourinary: no CVA tenderness Results & Data Results & Data ([facility]) Vital Signs (Past 12 Hours) Vital Signs Temp Pulse Resp BP Pulse Ox 09/10/19 16:00 108 H 13 107/59 L 92 09/10/19 15:32 110 H 24 144/70 H 94 09/10/19 15:00 116 H 23 116/61 09/10/19 14:30 116 H 23 127/61 09/10/19 14:00 109 H 24 140/71 09/10/19 13:34 107 H 19 144/68 H 09/10/19 13:30 106 H 26 H 09/10/19 13:00 112 H 24 130/76 98 09/10/19 12:01 36.8 C 82 18 115/74 99 Diagnostic Findings XR chest 1V portable IMPRESSION: No acute process. CT ANGIOGRAPHY OF THE CHEST, PULMONARY EMBOLUS PROTOCOL IMPRESSION: 1. No pulmonary emboli identified. 2. No consolidation to suggest pneumonia. 3. Interlobular septal thickening which favors mild pulmonary edema. 4. Interval decrease in size of the left supraclavicular lymphadenopathy shown on PET/CT of March 19, 2019. ABDOMEN AND PELVIS CT WITH IV CONTRAST IMPRESSION: 1. Unchanged wall thickening involving the second portion the duodenum corresponds to the patient's known primary duodenal carcinoma. 2. No new adenopathy or evidence of progressive metastatic disease. 3. Mild inflammatory stranding surrounding the uncinate process of the pancreas and duodenum may be on a posttreatment related basis versus acute pancreatitis. Correlate with lipase. 4. Stable positioning of the common bile duct stent. 5. Moderate gallbladder distention with gallbladder wall thickening, intrahepatic and extrahepatic biliary ductal dilation appears similar from comp arison. 6. Additional findings as above. ECG Indication: abdominal pain Rate (beats per minute): 77 Rhythm: sinus tachycardia Findings: no acute ischemic change Comparison ECG Date: from (06/03/19) Change: no significant change Code Status & VTE Plan Code Status Full as per patient wishes VTE Prophylaxis Plan VTE Prophylaxis will be ordered: Yes PG Care Time/CCT Total # of Minutes Spent Total Time Spent with Patient: Total time spent is greater than 50% in coordination of care (as documented) at patient's floor/unit and/or counseling patient: Coding Level of Care Code 97635 Initial Inpt Care Lvl 3 Diagnoses Epigastric pain R10.13 Acute pancreatitis K85.90 Acid reflux K21.9 Duodenal adenocarcinoma C17.0 Thrombocytopenia D69.6 Rash R21 DVT prophylaxis Z29.9
[2019-09-10] MEDS ORDERED: LACTATED RINGER'S 1,000 ML IV ONE ×2 (16:53→19:45)
[2019-09-10] MEDS ORDERED: FAMOTIDINE 20MG/5ML IV PUSH IV STA (16:54)
[2019-09-10] MEDS ORDERED: ONDANSETRON INJ 2 MG/ML 2 ML VIAL IV PRN (19:49)
[2019-09-10] MEDS ORDERED: MAGNESIUM HYDROXIDE SUSP 30 ML UDC PO PRN (20:30)
[2019-09-10] MEDS ORDERED: POLYETHYLENE (MIRALAX) 17 GM PACK PO PRN (20:30)
[2019-09-10] MEDS ORDERED: ALUMINUM/MAGNESIUM SUSP 30 ML UDC PO PRN (20:30)
[2019-09-10] MEDS ORDERED: HYDROmorphone INJ 0.5 MG/0.5 ML SYR IV PRN (20:32)
[2019-09-10] MEDS ORDERED: HYDROmorphone INJ 1 MG/ML SYRINGE IV PRN (20:32)
[2019-09-10] MEDS: LACTATED RINGER'S 1,000 ML IV SCH (22:13)
[2019-09-11] MEDS: LACTATED RINGER'S 1,000 ML IV SCH ×3 (04:26→18:28)
--- NOTE | 2019-09-11 06:02 | Electrocardiogram Report ---
Test Reason : Blood Pressure : / mmHG Vent. Rate : 077 BPM Atrial Rate : 077 BPM P-R Int : 138 ms QRS Dur : 082 ms QT Int : 370 ms P-R-T Axes : 058 067 049 degrees QTc Int : 418 ms Normal sinus rhythm Nonspecific ST abnormality Abnormal ECG When compared with ECG of 03-JUN-2019 20:47, No significant change was found Confirmed by Deonte Durbin ([id number]) on 09/11/2019 6:01:49 AM Referred By: Confirmed By:Deonte Durbin
[2019-09-11 06:11] LABS: Mean Corpuscular Hgb Conc 32.7 g/dL (32-36)
[2019-09-11 06:26] LABS: Hematocrit (blood only) 30.6 % (37-47); Mean Corpuscular Hemoglobin 35.1 pg (25-34); Mean Corpuscular Volume 107.4 fL (80-100); RDW Coefficient of Variation 16.4 % (11.5-14.5); RDW Standard Deviation 63.8 fL (36.4-46.3); Red Blood Count 2.85 M/uL (4.2-5.4); White Blood Count 6.24 K/uL (4.8-10.8)
[2019-09-11 06:51] LABS: Albumin Level 2.4 gm/dl (3.4-5.0); BUN Creatinine Ratio 15.2 (10-20); Calcium 8.2 mg/dl (8.5-10.1); Creatinine Clr Calc Pharmacy 102.7 ml/min; Est GFR (African American) 113.3; Est GFR (Non-African American) 97.8; Potassium 3.9 mmol/L (3.5-5.1)
[2019-09-11 06:59] LABS: Albumin Globulin Ratio 0.7 (0.9-2); Bilirubin,Total 3.8 mg/dl (0.2-1); Globulin 3.3 gm/dl (2.5-4.0); Total Protein 5.7 gm/dl (6.4-8.2)
[2019-09-11 07:05] LABS: Platelet Count 66 K/uL (130-400)
[2019-09-11 07:06] LABS: Basophils # (auto) 0.01 K/uL (0-0.2); Basophils % (auto) 0.2 %; Eosinophils # (auto) 0.05 K/uL (0-0.5); Eosinophils % (auto) 0.8 %; Immature Granulocytes # (auto) 0.02 K/uL (0.00-0.02); Immature Granulocytes % (auto) 0.3 %; Lymphocytes # (auto) 0.62 K/uL (1.2-3.4); Lymphocytes % (auto) 9.9 %; Monocytes # (auto) 0.56 K/uL (0.11-0.59); Neutrophils # (auto) 4.98 K/uL (1.4-6.5); Neutrophils % (auto) 79.8 %; Platelet Estimate Decreased (Normal)
--- NOTE | 2019-09-11 07:48 | Magnetic Resonance Report ---
MR MRCP HISTORY: Epigastric pain with biliary stent in place TECHNIQUE: MRCP the abdomen was performed without contrast according to standard departmental protoco l. COMPARISON STUDY: Abdomen and pelvis CT 09/10/2019. FINDINGS: Bibasilar densities suggestive of dependent change/atelectasis. Motion artifact results in suboptimal evaluation. There is again noted a metal stent within the common bile duct. This appears i n good position. Artifact limits evaluation for patency. There is upstream intrahepatic and extrahepa tic bile duct dilatation, unchanged. The gallbladder remains moderately distended with mucosal thicke kamla and a small amount of pericholecystic fluid. This is similar to the prior study. This may be paula ctive versus an acute cholecystitis. No gallstones identified. Small amount of fluid surrounding the second portion of the duodenum which is thickened consistent with the patient's history of a duodenal mass. No hydronephrosis. The portal vein, splenic vein, and superior mesenteric vein appear patent. IMPRESSION: 1. There is again noted a metal stent within the common bile duct which appears in good position. Art ifacts limits evaluation for patency. 2. Intra and extrahepatic bile duct dilatation remains unchanged. 3. Moderately distended gallbladder with wall thickening and a small amount of pericholecystic fluid is also similar to the prior study. This may be reactive versus an acute cholecystitis. No gallstones identified. 4. Thickening and fluid within the second portion of the duodenum is again noted and consistent with the patient's known history of a duodenal malignancy. ACT 112: Negative or not required by law. Electronically signed by: Yash Scruggs M.D. 09/11/2019 7:46 AM
[2019-09-11] MEDS: FAMOTIDINE 20 MG in SYRINGE 3 ML IV SCH (09:42)
--- NOTE | 2019-09-11 11:41 | Hospitalist Progress Note ---
Date of Service September 11, 2019 Assessment & Plan (1) Epigastric pain: 54 yo F w/ PMHx. of duodenal adenocarcinoma stage IV, presenting with abdominal pain found to have labs concerning for cholangitis with elevated total bilirubin, AST/ALT, and alkaline phosphatase in the setting of stent placement in April 04. - placed on Ertapenem - continuing with 150 ml/hr LR - follow blood cultures - plan for ERCP tomorrow Adenocarcinoma of the duodenum stage IV - on palliative chemotherapy DVT: SCD Diet: NPO Code: full Admission and Anticipated Discharge Date Admission Date: September 10, 2019 Supervising Physician Co-Signing Physician Notes I personally examined the patient and verified all staples points of history and exam, discussed case, and agree with decision making with Dr Fernando. feeling reasonably ok. was hoping for [facility] cutler for continuity since that's where initial stent was put in but happy with care here and is totally ok with ercp here since transfer bureaucracy appears insurmountable. vitals noted nad heent nc at mmm breathing unlabored no accessory muscles good effort skin no rashes no pallor or icterus stent malfunction, concern on "smoldering" cholangitis picture -not unstable -started ertapenem -for ERCP -continue supportive care otherwise as above Subjective Doing okay this morning she was having pain that was in her lower abdomen. She explained that she was previously seen by Dr. Hernandez and Dr. Faustin at [facility] in [place]. Review of Systems Review of Systems: constitutional: denies fever or chills cardiac: denies chest pain or palpitations GI: denies nausea or vomiting pulm: denies cough or shortness of breath Neuro: admits headache : denies urinary frequency, urgency or frequency Physical Exam Constitutional: WD/WN, vitals as above Eyes: PERRL, conjunctivae normal, anicteric sclerae erythema and crusting around eyes ENMT: external ear and nose normal, oropharynx normal Neck: normal visual inspection Respiratory: normal respiratory effort, lungs clear to auscultation Cardiovascular: RRR, no murmur, no edema Gastrointestinal (Abdomen): normal bowel sounds, soft, nontender, no hepatosplenomegaly Psychiatric: A+Ox3, euthymic affect Results & Data Results & Data ([facility]) Vital Signs (Past 12 Hours) Vital Signs Temp Pulse Resp BP Pulse Ox 09/11/19 10:50 37.1 C 85 112/72 96 09/11/19 07:00 37.2 C 80 99/63 L 95 09/10/19 23:51 37.1 C 101 H 18 102/58 L 93 Resident Activity Tracking Resident Involvement: Resident Care Provided Care Provided: Adult Hospital Medicine
[2019-09-11] MEDS: ERTAPENEM SODIUM 1,000 MG in SODIUM CHLORIDE 0.9% 50 ML IV SCH (11:50)
--- NOTE | 2019-09-11 15:40 | Consultation Report ---
DATE OF CONSULTATION: 09/11/2019 REASON FOR EVALUATION: Abnormal liver tests and abdominal pain. HISTORY OF PRESENT ILLNESS: The patient is a 54-year-old, diagnosed with stage IV duodenal adenocarcinoma and had a metal stent placed in [place] 6 months ago. She was told at the time that it would need to be cleaned out periodically usually about every 6 months, which is about now. She is not sure if it is a covered or uncovered stent, but her liver tests are worsening and her biliary tree is somewhat dilated. MRCP and CT scan are of low resolution. It is not clear whether the tumor has overgrown the stent or whether there is some sludge material within the stent. Her physician in [place] was contacted and he preferred that the patient have an ERCP done here rather than transporting her to [place]. Her lipase is normal. HOME MEDICATIONS: Xeloda, Florastor, Zofran and filgrastim. ALLERGIES: EPINEPHRINE, LIDOCAINE, PENICILLIN, AMOXICILLIN. PAST MEDICAL HISTORY: Duodenal adenocarcinoma, depression, fibromyalgia, hyperlipidemia, migraine headaches, tubal ligation, breast reduction surgery. She has had hysterectomy and multiple laparoscopies for endometriosis. FAMILY HISTORY: Positive for uterine cancer in the mother. Grandmother had colon cancer on the father's side. Father had prostate cancer. SOCIAL HISTORY: The patient is , has 7 children. Is homemaker, lives at home. Does not smoke, does not drink any alcohol. PHYSICAL EXAMINATION: GENERAL: The patient has multiple tattoos on her arms. ABDOMEN: Shows low transverse scar and umbilical scars. There is some tenderness in the central and upper abdomen. No mass appreciated. SKIN: She does have a rash on the back of her hands and on her left upper eyelid. IMPRESSION AND PLAN: The patient has worsening liver tests probably from a clogged metal stent in her biliary tree either from tumor ingrowth or sludge. I plan on scheduling an ERCP for tomorrow afternoon to evaluate the stent and its patency and hopefully open it up and clean it out. GINNY
--- NOTE | 2019-09-11 18:30 | Anesthesiology Consultation ---
Date of Service September 11, 2019 Assessment & Plan (1) Encounter for pre-operative examination: Chart Review Chart Review: Acceptable Risk for Surgery and Patient NOT seen in Pre Admission Testing COVID-19 ROUTINE PREOP SCREENING TEST WAS NEGATIVE 09/11/2019. Consults Requested none History Surgery Operation Date: 09/12/19 07:00 Proposed Procedures p Endoscopic Retrograde Cholangiopancreatogram - Gómez Mcleod Height/Weight Height: 5 ft 5 in Weight: 90.6 kg Allergies Allergy/AdvReac Type Severity Reaction Status Date / Time epinephrine Allergy Intermediate heart Verified 09/10/19 12:23 palpitations, itching, rash, muscle pain lidocaine Allergy Intermediate heart Verified 09/10/19 12:23 palpitations, itching rash muscle pain Penicillins Allergy Mild rash and Verified 09/10/19 12:23 fever amoxicillin AdvReac Mild fever, rash Verified 09/10/19 12:23 Medications Home Medications Medication Instructions Recorded Confirmed Last Taken capecitabine [Xeloda] See Rx Instructions .ROUTE .COMPLEX 06/03/19 09/10/19 Unknown Saccharomyces boulardii [Florastor] 250 mg PO BID #20 cap 06/04/19 09/10/19 Unknown ondansetron 4 mg PO Q6H PRN #14 tab 06/04/19 09/10/19 Unknown filgrastim-sndz [Zarxio] 480 mcg IV DIRECTED 09/10/19 09/10/19 Unknown Active Medications Generic Name Dose Route Start Last Admin Trade Name Freq PRN Reason Stop Dose Admin Hydromorphone HCl 1 mg 09/10/19 20:32 09/11/19 16:14 Dilaudid IV 09/24/19 20:31 1 mg Q4H PRN Administration Severe Pain Lactated Ringer's 1,000 mls @ 150 mls/hr 09/10/19 20:45 09/11/19 18:28 Lr IV 10/10/19 20:44 150 mls/hr .Q6H40M ZHANE Administration Famotidine 20 mg/ Syringe 5 mls @ 2.5 mls/min 09/11/19 09:00 09/11/19 09:42 IV 10/11/19 08:59 2.5 mls/min QAM ZHANE Administration Ertapenem 1,000 mg/ Sodium 60 mls @ 100 mls/hr 09/11/19 11:00 09/11/19 12:23 Chloride IV 09/21/19 10:59 Infused Q24H ZHANE Infusion Miscellaneous 1 ea 09/11/19 00:00 09/11/19 16:08 Order Awaiting Action N/A 10/11/19 00:00 Not Given QS ZHANE Ondansetron HCl 4 mg 09/10/19 19:49 09/11/19 16:14 Zofran IV 10/10/19 19:48 4 mg Q4H PRN Administration Nausea or Vomiting Past Medical History Medical History (Updated 09/11/19 @ 18:28 by Carlin Quiroga MD) Acid reflux Anxiety 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 Depression Duodenal adenocarcinoma Fibromyalgia Hyperlipidemia Migraine hx of and no longer a problem acute pancreatitis, GERD, thrombocytopenia. 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 Past Family History Family History Mother Myocardial infarction, Onset Age: 58 Anxiety Uterine cancer Depression Diabetes Heart disease Hypertension Kidney disease Lung disease Lung cancer Multiple sclerosis Grandmother (Paternal) Colorectal cancer Breast cancer Father Prostate cancer, Onset Age: 72 Gallbladder disease Hypertension Brother Anxiety Drug abuse Hypertension Kidney stones Grandmother (Maternal) Anxiety Gallbladder disease Aunt Stomach cancer, Onset Age: 67 Esophageal cancer, Onset Age: 67 Denies family history of Ovarian cancer Past Surgical History Surgical History History of tubal ligation Hx of bilateral breast reduction surgery (2013) S/P total hysterectomy and bilateral salpingo-oophorectomy d/t endometriosis Social History Smoking Status: Never smoker tobacco type: cigarettes Hx Alcohol Use: No Alcohol type: hard liquor Hx Substance Use: No substance use type: does not use Physical Exam Vital Signs Last Vital Signs Temp 36.7 C 09/11/19 15:25 Pulse 91 H 09/11/19 15:25 Resp 18 09/11/19 15:25 BP 122/76 09/11/19 15:25 Pulse Ox 94 09/11/19 15:25 Testing Laboratory Results 09/11/19 05:38 09/11/19 05:38 PT 10.7 Seconds (9.0-12.0) 09/10/19 13:10 INR 1.0 (0.9-1.1) 09/10/19 13:10 APTT 25.7 Seconds (21.0-31.0) 09/10/19 13:10 Urine Color Yellow 09/10/19 13:10 Urine Appearance Clear (Clear) 09/10/19 13:10 Urine pH 6.5 (4.5-7.5) 09/10/19 13:10 Ur Specific [place] 1.013 (1.000-1.030) 09/10/19 13:10 Urine Protein Negative (Negative) 09/10/19 13:10 Urine Glucose (UA) Negative (Negative) 09/10/19 13:10 Urine Ketones Negative (Negative) 09/10/19 13:10 Urine Nitrite Negative (Negative) 09/10/19 13:10 Ur Leukocyte Esterase Negative (Negative) 09/10/19 13:10 09/10/19 13:55 Aerobic Blood Culture - Preliminary Blood No growth in Aerobic bottle after 24 hours. Anaerobic Blood Culture - Preliminary No growth in Anaerobic bottle after 24 hours. 09/10/19 13:02 Aerobic Blood Culture - Preliminary Blood No growth in Aerobic bottle after 24 hours. Anaerobic Blood Culture - Preliminary No growth in Anaerobic bottle after 24 hours. Electrocardiogram Date: 09/10/19 Findings: + NSR @ (77) Normal sinus rhythm Nonspecific ST abnormality Abnormal ECG When compared with ECG of 03-JUN-2019 20:47, No significant change was found Confirmed by Deonte Durbin ([id number]) on 09/11/2019 6:01:49 AM
--- NOTE | 2019-09-11 19:15 | Billing Data ---
Date of Service September 11, 2019 Coding Level of Care Code 11265 Subseq Hosp Care Lvl 3
[2019-09-11] MEDS: ACETAMINOPHEN 325 MG TAB PO PRN (22:59)
[2019-09-12] MEDS: LACTATED RINGER'S 1,000 ML IV SCH ×4 (01:14→20:52)
[2019-09-12] MEDS ORDERED: CIPROFLOXACIN / D5W 400 MG/200 ML BAG IV SCH (06:00)
[2019-09-12 06:19] LABS: Mean Corpuscular Hgb Conc 34.3 g/dL (32-36)
[2019-09-12 06:36] LABS: Hematocrit (blood only) 27.1 % (37-47); Hemoglobin 9.3 g/dL (12.0-16.0); Mean Corpuscular Hemoglobin 36.3 pg (25-34); Mean Corpuscular Volume 105.9 fL (80-100); RDW Coefficient of Variation 16.4 % (11.5-14.5); RDW Standard Deviation 63.4 fL (36.4-46.3); Red Blood Count 2.56 M/uL (4.2-5.4); White Blood Count 5.38 K/uL (4.8-10.8)
[2019-09-12 06:53] LABS: Basophils # (auto) 0.01 K/uL (0-0.2); Basophils % (auto) 0.2 %; Eosinophils # (auto) 0.06 K/uL (0-0.5); Eosinophils % (auto) 1.1 %; Immature Granulocytes # (auto) 0.02 K/uL (0.00-0.02); Immature Granulocytes % (auto) 0.4 %; Lymphocytes # (auto) 0.65 K/uL (1.2-3.4); Lymphocytes % (auto) 12.1 %; Monocytes # (auto) 0.66 K/uL (0.11-0.59); Monocytes % (auto) 12.3 %; Neutrophils # (auto) 3.98 K/uL (1.4-6.5); Neutrophils % (auto) 73.9 %; Platelet Count 41 K/uL (130-400); Platelet Estimate Decreased (Normal); Tear Drop Cells 1+
[2019-09-12 06:59] LABS: Albumin Level 2.2 gm/dl (3.4-5.0); BUN Creatinine Ratio 13.3 (10-20); Calcium 8.3 mg/dl (8.5-10.1); Creatinine Clr Calc Pharmacy 126.9 ml/min; Est GFR (African American) 121.5; Est GFR (Non-African American) 104.9; Potassium 3.4 mmol/L (3.5-5.1)
[2019-09-12 07:07] LABS: Albumin Globulin Ratio 0.7 (0.9-2); Bilirubin,Total 4.6 mg/dl (0.2-1); Total Protein 5.2 gm/dl (6.4-8.2)
[2019-09-12] MEDS: FAMOTIDINE 20 MG in SYRINGE 3 ML IV SCH (08:02)
[2019-09-12] MEDS: ACETAMINOPHEN 325 MG TAB PO PRN (08:09)
[2019-09-12] MEDS: ERTAPENEM SODIUM 1,000 MG in SODIUM CHLORIDE 0.9% 50 ML IV SCH (10:53)
[2019-09-12] MEDS: POTASSIUM CHLORIDE / WTR 10 MEQ/100 ML PLCT IV SCH ×4 (11:40→16:10)
[2019-09-12] MEDS ORDERED: CONRAY 60% 50 ML VIAL ONE (13:11)
[2019-09-12] MEDS ORDERED: ONDANSETRON INJ 2 MG/ML 2 ML VIAL ONE (13:46)
[2019-09-12] MEDS ORDERED: PROPOFOL IV EMULSION 10 MG/ML 20 ML VIAL IV ONE (13:46)
[2019-09-12] MEDS ORDERED: LIDOCAINE HCL 2% 2 ML VIAL/AMP(20MG/ML) INFIL ONE (13:46)
[2019-09-12] MEDS ORDERED: SUCCINYLCHOLINE CHLORIDE 20 MG/ML 10 ML VIAL IV ONE (13:46)
[2019-09-12] MEDS ORDERED: fentaNYL citrate 100 MCG/2 ML VIAL ONE (13:47)
[2019-09-12] MEDS ORDERED: INDOMETHACIN 50 MG SUPP PR ONE (13:51)
--- NOTE | 2019-09-12 13:54 | History & Physical Report ---
Date of Service September 12, 2019 History of Present Illness Chief Complaint: biliary blockage Primary Care Provider: Jenny Valdez DO For ERCP Allergies Allergy/AdvReac Type Severity Reaction Status Date / Time epinephrine Allergy Intermediate heart Verified 09/10/19 12:23 palpitations, itching, rash, muscle pain lidocaine Allergy Intermediate heart Verified 09/10/19 12:23 palpitations, itching rash muscle pain Penicillins Allergy Mild rash and Verified 09/10/19 12:23 fever amoxicillin AdvReac Mild fever, rash Verified 09/10/19 12:23 Home Medications Home Medications Medication Instructions Recorded Confirmed Type capecitabine [Xeloda] See Rx Instructions .ROUTE .COMPLEX 06/03/19 09/10/19 History Saccharomyces boulardii [Florastor] 250 mg PO BID #20 cap 06/04/19 09/10/19 Rx ondansetron 4 mg PO Q6H PRN #14 tab 06/04/19 09/10/19 Rx filgrastim-sndz [Zarxio] 480 mcg IV DIRECTED 09/10/19 09/10/19 History Past Med/Surg History Medical History (Updated 09/11/19 @ 18:28 by Carlin Quiroga MD) Acid reflux Anxiety 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 Depression Duodenal adenocarcinoma Fibromyalgia Hyperlipidemia Migraine hx of and no longer a problem Surgical History History of tubal ligation Hx of bilateral breast reduction surgery (2013) S/P total hysterectomy and bilateral salpingo-oophorectomy d/t endometriosis Family History Mother Myocardial infarction, Onset Age: 58 Anxiety Uterine cancer Depression Diabetes Heart disease Hypertension Kidney disease Lung disease Lung cancer Multiple sclerosis Grandmother (Paternal) Colorectal cancer Breast cancer Father Prostate cancer, Onset Age: 72 Gallbladder disease Hypertension Brother Anxiety Drug abuse Hypertension Kidney stones Grandmother (Maternal) Anxiety Gallbladder disease Aunt Stomach cancer, Onset Age: 67 Esophageal cancer, Onset Age: 67 Denies family history of Ovarian cancer Social History Preferred Language: Slovenian Communication Ability: Effective Visual Impairment: No Limitations Hearing Ability: Normal Granulating Blender Required: No Beliefs That Will Affect Care: None marital status: Current Living Situation: Spouse Current Living Situation Comment: spouse and 7 children current occupational status: other current occupation: homemaker Other Information That Helps Us Care for You: No Feels Safe at Home: Yes Safety Concerns: Feels Safe At This Time Smoking Status: Never smoker Tobacco Type: cigarettes ; Age Started Using Tobacco: 17 ; Age Quit Using Tobacco: 38 ; packs per day: 0.75 ; Second Hand Exposure: No ; Hx Alcohol Use: No Hx Substance Use: No Dental Care, Regularly: Yes Physical Activity Frequency: 1-2 Times per Week Physical Activity Frequency Comment: walking Seatbelt Use: always Physical Exam Constitutional: well developed Respiratory: normal respiratory effort Cardiovascular: Rate/Rhythm: regular rate and regular rhythm Gastrointestinal (Abdomen): Percussion/Palpation: abdomen soft Results & Data Vital Signs (Past 12 Hours) Vital Signs Temp Pulse Pulse Resp BP BP Pulse Ox 09/12/19 12:04 76 09/12/19 11:00 36.8 C 89 18 126/78 94 09/12/19 07:00 36.7 C 80 18 101/65 94 09/12/19 03:03 36.7 C 74 16 101/64 93 Code Status & VTE Plan VTE Prophylaxis Plan VTE Prophylaxis will be ordered: Yes
[2019-09-12] MEDS ORDERED: SODIUM CHLORIDE 0.9% 1000ML 1,000 ML IV SCH (14:00)
[2019-09-12] MEDS ORDERED: ONDANSETRON INJ 2 MG/ML 2 ML VIAL IV PRN (14:03)
[2019-09-12] MEDS ORDERED: ATROPINE SULFATE 0.1 MG/ML 10ML SYR IV PRN (14:03)
[2019-09-12] MEDS ORDERED: fentaNYL citrate 100 MCG/2 ML VIAL IV PRN (14:03)
--- NOTE | 2019-09-12 15:02 | GI REPORT ---
Patient Name: Suzanne Alvarez Procedure Date: 09/12/2019 12:36 PM Date of : 1965 Admit Type: Inpatient Age: 54 Gender: Female Attending MD: Gómez Mcleod MD Procedure: ERCP Providers: Gómez Mcleod MD Referring MD: Calin Anglin Indications: Abnormal abdominal MRI Medicines: General Anesthesia Complications: No immediate complications. Estimated Blood Loss: Estimated blood loss was minimal. Procedure: Pre-Anesthesia Assessment: - Prior to the procedure, a History and Physical was performed, and patient medications, allergies and sensitivities were reviewed. The patient's tolerance of previous anesthesia was reviewed. - The risks and benefits of the procedure and the sedation options and risks were discussed with the patient. All questions were answered and informed consent was obtained. After obtaining informed consent, the scope was passed under direct vision. Throughout the procedure, the patient's blood pressure, pulse, and oxygen saturations were monitored continuously. The Scope was introduced through the mouth, and advanced to the duodenum without successful cannulation. The ERCP was technically difficult and complex due to extrinsic compression. The patient tolerated the procedure well. Findings: The upper GI tract was traversed under direct vision without detailed examination. A large infiltrative mass with no bleeding was found in the second portion of the duodenum. The stent is obstructed by tumor ingrowth and the catheter will not pass into the lumen. Impression: - Malignant duodenal mass. Recommendation: - Return patient to [facility] for ongoing care. Gómez Mcleod M.D. Gómez Mcleod MD 09/12/2019 3:02:11 PM This report has been signed electronically. Note Initiated On: 09/12/2019 12:36 PM Number of Addenda: 0 I attest to the content of the Intraoperative Record and orders documented therein, exceptions below {[id number]}
--- NOTE | 2019-09-12 15:13 | Fluoroscopy Report ---
[place] ERCP biliary ductal CLINICAL HISTORY: EXPLORE DUCTS COMPARISON STUDY: MRCP 09/10/2019. FLUOROSCOPY TIME: 38 seconds. FINDINGS: 3 fluoroscopic spot images of the right upper quadrant were submitted. There is an endoscop e within the second portion of duodenum. The ampulla was cannulated. A metallic common bile duct sten t is noted. This is likely in good position. IMPRESSION: Fluoroscopy provided for ERCP ACT 112: Negative or not required by law. Electronically signed by: Yash Scruggs M.D. 09/12/2019 3:12 PM
--- NOTE | 2019-09-12 15:43 | Progress Notes ---
DATE: 09/12/2019 The patient had a reduction in her platelet count today down to 40,000 but no bleeding. She underwent an attempted ERCP to evaluate her bile duct and its patency. An upper endoscopy was performed and I was able to see the stent and there was some food debris trapped in it and I was able to clear that. I then passed the duodenoscope and the stent was somewhat distorted as it exited the bile duct and there was tumor ingrowth in the lumen of the stent. I was able to pass a guidewire blindly through the tumor, but was not able to advance the catheter safely without causing some bleeding. IMPRESSION: The patient has tumor ingrowth at the side of her biliary stent. I was unable to cannulate the duct and with a low platelet count there is a risk for bleeding that could not easily be controlled. The patient has obstructed bile duct from tumor ingrowth from her duodenal adenocarcinoma. She may be a candidate for percutaneous biliary drainage placement for palliation and may need to be transferred to [place] for this procedure.
--- NOTE | 2019-09-12 15:49 | Anesthesiology Progress Note ---
Date of Service September 12, 2019 Anesthesia Post Procedure Vital Signs Vital Signs: Temp Pulse Pulse Pulse Resp BP BP 09/12/19 15:40 81 14 121/66 09/12/19 15:30 82 18 122/67 09/12/19 15:20 86 12 124/65 09/12/19 15:10 36.6 C 91 H 19 81/59 L 09/12/19 13:47 37 C 95 H 16 118/73 09/12/19 11:00 36.8 C 89 18 126/78 09/12/19 08:00 76 09/12/19 07:00 36.7 C 80 18 101/65 09/12/19 03:03 36.7 C 74 16 101/64 09/12/19 00:33 110 H 09/11/19 23:50 37.5 C 09/11/19 22:57 38.5 C H 108 H 16 123/69 09/11/19 20:00 37.2 C 100 H 18 141/79 H 09/11/19 16:00 87 Pulse Ox 09/12/19 15:40 98 09/12/19 15:30 100 09/12/19 15:20 100 09/12/19 15:10 97 09/12/19 13:47 96 09/12/19 11:00 94 09/12/19 08:00 09/12/19 07:00 94 09/12/19 03:03 93 09/12/19 00:33 09/11/19 23:50 09/11/19 22:57 93 09/11/19 20:00 91 09/11/19 16:00 Pain Intensity Abdomen: Pain Intensity: 1 Transfer of Care Handoff Completed per policy Notes Mental Status: alert / awake / arousable Patient Amnestic to Procedure: Yes Nausea / Vomiting: adequately controlled Pain: adequately controlled Airway Patency, RR, SpO2: stable & adequate BP & HR: stable & adequate Hydration State: stable & adequate Anesthetic Complications: no major complications apparent
--- NOTE | 2019-09-12 19:52 | Discharge Summary ---
Date of Service September 12, 2019 Admission HPI Per Admitting Provider Suzanne Alvarez is a 54 year old female with stage IV duodenal adenocarcinoma who presents to the ER with sudden onset abdominal pain. She reports sudden onset severe 10/10 epigastric pain that radiates around her back, started approximately 10-15 minutes after eating breakfast this morning (tea with honey and peanut butter toast) which was not unusual for her. She reports having a similar pain back in April although milder at that time when she was diagnosed with biliary obstruction and reported having a nerve block and biliary stent placed in [place]. After the pain started she called her oncology office in [place] and advised her to go to the ER. She denies any fevers or chills but has always been cold since starting on her chemotherapy oxaliplatin and Xeloda. Zarxio listed as medication but only required this once when her counts were low in July. Admission Exam Per Admitting Provider Constitutional: well developed and + acute distress (epigastric pain); + not well nourished Eyes: PERRL, conjunctivae normal, anicteric sclerae ENMT: external ear and nose normal, oropharynx normal Neck: trachea midline, no thyromegaly Respiratory: normal respiratory effort; no respiratory distress Auscultation: lungs clear to auscultation bilaterally; no crackles, no rales, no rhonchi and no wheezes Cardiovascular: Rate/Rhythm: regular rhythm and + tachycardic Heart Sounds: no murmur Vessels: no JVD Extremities: normal capillary refill; no calf tenderness and no pedal edema Gastrointestinal (Abdomen): Percussion/Palpation: + abdomen tender (epigatric > diffuse) and abdomen soft; no guarding and abdomen not rigid Musculoskeletal: no cyanosis or clubbing, extremities motor strength 5/5 (grossly normal) Skin: multiple distinct multiple erythematous plaques around left eye and on back of bilateral hands Neurologic: moves all extremities and awake; no focal motor deficits Psychiatric: A+Ox3, euthymic affect Genitourinary: no CVA tenderness Principal Diagnosis biliary occlusion from cancer Discharge Exam Constitutional WD/WN, vitals as above Eyes PERRL, conjunctivae normal, anicteric sclerae ENMT external ear and nose normal, oropharynx normal Neck normal visual inspection Respiratory normal respiratory effort, lungs clear to auscultation Cardiovascular RRR, no murmur, no edema Gastrointestinal (Abdomen) normal bowel sounds, soft, nontender, no hepatosplenomegaly Psychiatric A+Ox3, euthymic affect Discharge Data Allergies Allergy/AdvReac Type Severity Reaction Status Date / Time epinephrine Allergy Intermediate heart Verified 09/10/19 12:23 palpitations, itching, rash, muscle pain lidocaine Allergy Intermediate heart Verified 09/10/19 12:23 palpitations, itching rash muscle pain Penicillins Allergy Mild rash and Verified 09/10/19 12:23 fever amoxicillin AdvReac Mild fever, rash Verified 09/10/19 12:23 Consultations 09/10/19 16:28 ED Decision to Admit Stat 09/10/19 19:49 Consult Gastroenterology Routine 09/11/19 10:46 Burn CD for patient Stat 09/11/19 13:24 Consult Gastroenterology Routine 09/12/19 17:45 Burn CD for patient Stat Procedures Performed Operation Date: 09/12/19 07:00 Actual Procedures p Esophagogastroduodenoscopy; Endoscopic Retrograde Cholangiopancreatogram(Not Applicable) - Gómez Perez Ordered Studies 09/10/19 12:56 CT abd pelvis IV con only Stat 09/10/19 14:08 CT angio chest PE protocol Stat 09/10/19 19:44 MR MRCP Stat 09/12/19 14:30 [place] ERCP biliary ductal Routine Hospital Course (1) Acute cholangitis: 54 yo F w/ PMHx. of duodenal adenocarcinoma stage IV, presenting with abdominal pain found to have labs concerning for cholangitis with elevated total bilirubin, AST/ALT, and alkaline phosphatase in the setting of stent placement in April 04. COVID negative (09/10) Cholangitis w/ elevation in total bili: 4.6, AST: 131 Alk phos.: 219 - MRCP on admission showed gallbladder was concerning for acute cholecystitis w/o visible gallstones and they were unable to evaluate the patency of the stent - CT A/P showed wall thickening of the 2nd portion of the duodenum as well as an inflammation of the uncinate and bile duct dilation. - placed on Ertapenem - following blood cultures - GI consulted ERCP performed per GI, "The patient had a reduction in her platelet count today down to 40,000 but no bleeding. She underwent an attempted ERCP to evaluate her bile duct and its patency. An upper endoscopy was performed and I was able to see the stent and there was some food debris trapped in it and I was able to clear that. I then passed the duodenoscope and the stent was somewhat distorted as it exited the bile duct and there was tumor ingrowth in the lumen of the stent. I was able to pass a guidewire blindly through the tumor, but was not able to advance the catheter safely without causing some bleeding. IMPRESSION: The patient has tumor ingrowth at the side of her biliary stent. I was unable to cannulate the duct and with a low platelet count there is a risk for bleeding that could not easily be controlled. The patient has obstructed bile duct from tumor ingrowth from her duodenal adenocarcinoma. She may be a candidate for percutaneous biliary drainage placement for palliation and may need to be transferred to [place] for this procedure." - Patient has a fentanyl patch for pain control Adenocarcinoma of the duodenum stage IV - on palliative chemotherapy, held due to concern for infection - transferred to cancer treatment center [facility] in [place] for continuity of care and potentially for perc. biliary drainage placement (2) Epigastric pain: (3) Duodenal adenocarcinoma: Total Time Total Time Spent Total Time Spent (In Minutes): <30 Discharge Plan Discharge Items Patient Disposition: [facility] Reason For Visit: PANCREATITIS Discharge Diagnosis: cholangitis Activity: Per Instructions section Non-emergency contact: Primary Care Provider and Oncologist Call non-emergency contact if: your symptoms worsen Follow-up/Referrals: Jenny Valdez DO [Primary Care Provider] - Diet: Nothing by Mouth Addtl Attending Provider Instructions: 54 yo F w/ PMHx. of duodenal adenocarcinoma stage IV, presenting with abdominal pain found to have labs concerning for cholangitis with elevated total bilirubin, AST/ALT, and alkaline phosphatase in the setting of stent placement in April 04. COVID negative (09/10) Cholangitis - placed on Ertapenem - IVF at 150 ml/hr LR - following blood cultures - total bili: 4.6, AST: 131 Alk phos.: 219 - MRCP on admission showed gallbladder was concerning for acute cholecystitis w/o visible gallstones and they were unable to evaluate the patency of the stent - CT A/P showed wall thickening of the 2nd portion of the duodenum as well as an inflammation of the uncinate and bile duct dilation. - GI consulted ERCP performed per GI, "The patient had a reduction in her platelet count today down to 40,000 but no bleeding. She underwent an attempted ERCP to evaluate her bile duct and its patency. An upper endoscopy was performed and I was able to see the stent and there was some food debris trapped in it and I was able to clear that. I then passed the duodenoscope and the stent was somewhat distorted as it exited the bile duct and there was tumor ingrowth in the lumen of the stent. I was able to pass a guidewire blindly through the tumor, but was not able to advance the catheter safely without causing some bleeding. IMPRESSION: The patient has tumor ingrowth at the side of her biliary stent. I was unable to cannulate the duct and with a low platelet count there is a risk for bleeding that could not easily be controlled. The patient has obstructed bile duct from tumor ingrowth from her duodenal adenocarcinoma. She may be a candidate for percutaneous biliary drainage placement for palliation and may need to be transferred to [place] for this procedure." - Patient has a fentanyl patch for pain control Adenocarcinoma of the duodenum stage IV - on palliative chemotherapy, held due to concern for infection Pending Studies at Discharge: Yes Studies:: blood cultures Stand-Alone Forms: [facility] Skilled Items Patient informed of condition?: Yes DNR: No Discharge Level of Care: Other Communicable Disease: No Discharge Prognosis: Stable Lines: Peripheral IV Urinary Catheter: No Medications and DC Order Prescriptions: Continued capecitabine [Xeloda] 500 mg tablet See Rx Instructions .ROUTE .COMPLEX RF: 0 ondansetron 4 mg tablet,disintegrating 4 mg PO Q6H PRN (Reason: nausea and vomiting) Qty: 14 RF: 0 Saccharomyces boulardii [Florastor] 250 mg capsule 250 mg PO BID Qty: 20 RF: 0 Zarxio 480 mcg/0.8 mL syringe 480 mcg IV DIRECTED RF: 0 Admission Data Admit Date/Time: 09/10/19 17:16 Attending Provider: Calin Anglin Admit Provider: Curly Tyson Primary Care Provider: Jenny Valdez Other Providers: Curly Tyson ; Marcial Amato ; Gómez Perez Supervising Physician Co-Signing Physician Notes I personally examined the patient and verified all staples points of history and exam, discussed case, and agree with decision making with Dr Fernando. d/w dr perez - ERCP appreciate, results unfortunate. R2 and dr davenport R3 arranged transfer to higher level since we have no IR here, transferring to [facility] for continuinity since her cancer team is there. vitals noted nad heent nc at mmm breathing unlabored no accessory muscles good effort skin no rashes no pallor, somewhat icteric biliary obstruction from malignancy, concern on "smoldering" cholangitis picture -continue ertapenem -for transfer for biliary drainage (anticipate percutaneous) -continue supportive care otherwise as above Resident Activity Tracking Resident Involvement: Resident Care Provided Care Provided: Adult Hospital Medicine
--- NOTE | 2019-09-12 20:02 | Billing Data ---
Date of Service September 12, 2019 Coding Level of Care Code D/C Day Management <30 mins
== END 2019-09-12 21:20 | disposition other institution (70) | DRG 374 ==
LOC: ED 11:49 → 2N 17:16 → SUATTDRO 17:16 → 2N 19:24

== ENCOUNTER 2020-09-01 20:25 | Inpatient (IN) ==
[2020-09-01] MEDS ORDERED: SODIUM CHLORIDE 0.9% 1000ML 1,000 ML IV ONE (21:35)
[2020-09-01] MEDS ORDERED: diphenhydrAMINE 50 MG/ML VIAL IV STA (21:37)
[2020-09-01] MEDS ORDERED: FAMOTIDINE 20MG IV PUSH 20 MG/5 ML SYR IV STA (21:37)
[2020-09-01] MEDS ORDERED: PROCHLORPERAZINE 2 ML IV ONE (21:37)
[2020-09-01] MEDS ORDERED: metroNIDAZOLE 500 MG/100 ML BAG IV STA (21:46)
[2020-09-01] MEDS ORDERED: CEFEPIME 2,000 MG/20 ML VIAL IV STA (21:46)
[2020-09-01 22:10] LABS: Base Excess VBG 6.2 mEq/L; HCO3 VBG 31 mmol/L; PCO2 VBG 49 mmHg (38-50); PO2 VBG 24 mmHg; pH VBG 7.43 (7.36-7.41)
[2020-09-01 22:11] LABS: Oxygen Saturation VBG < 60.0 %
[2020-09-01 22:16] LABS: INR 0.9 (0.9-1.1); Partial Thromboplastin Ratio 0.9; Partial Thromboplastin Time 22.9 Seconds (21.0-31.0); Prothrombin Time 9.5 Seconds (9.0-12.0)
[2020-09-01 22:23] LABS: Alanine Aminotransferase 24 U/L (12-78); Albumin Level 2.6 gm/dl (3.4-5.0); Aspartate Aminotransferase 30 U/L (15-37); BUN Creatinine Ratio 11.4 (10-20); Bilirubin Direct 0.3 mg/dl (0-0.2); Blood Urea Nitrogen 7 mg/dl (7-18); Calcium 8.9 mg/dl (8.5-10.1); Carbon Dioxide 31 mmol/L (21-32); Chloride 100 mmol/L (98-107); Creatinine Clr Calc Pharmacy 89.3 ml/min; Est GFR (African American) 117.3 ml/min; Est GFR (Non-African American) 101.2 ml/min; Glucose 102 mg/dl (70-99); Lipase 32 U/L (73-393); Magnesium 2.1 mg/dl (1.8-2.4); Potassium 3.8 mmol/L (3.5-5.1); Sodium 134 mmol/L (136-145)
[2020-09-01 22:24] LABS: Hematocrit (blood only) 31.2 % (37-47); Hemoglobin 10.7 g/dL (12.0-16.0); Mean Corpuscular Hemoglobin 31.7 pg (25-34); Mean Corpuscular Hgb Conc 34.3 g/dL (32-36); Mean Corpuscular Volume 92.3 fL (80-100); Mean Platelet Volume 10.1 fL (7.4-10.4); Platelet Count 81 K/uL (130-400); RDW Coefficient of Variation 12.3 % (11.5-14.5); RDW Standard Deviation 41.9 fL (36.4-46.3); Red Blood Count 3.38 M/uL (4.2-5.4); White Blood Count 0.23 K/uL (4.8-10.8)
[2020-09-01 22:25] LABS: Platelet Estimate Decreased (Normal)
[2020-09-01 22:26] LABS: Albumin Globulin Ratio 0.8 (0.9-2); Alkaline Phosphatase 273 U/L (45-117); Globulin 3.4 gm/dl (2.5-4.0); Phosphorus 2.6 mg/dl (2.5-4.9); Troponin I < 0.015 ng/ml (0-0.045)
[2020-09-01] MEDS ORDERED: OPTIRAY 350 500ml IV ONE (22:52)
[2020-09-01 23:48] LABS: Appearance Urine Clear (Clear); Bilirubin Urine Negative (Negative); Blood Urine Negative (Negative); Color Urine Dark Yellow; Glucose Urine UA Negative (Negative); Ketones Urine Trace (Negative); Leukocyte Esterase Urine Negative (Negative); Nitrite Urine Negative (Negative); Protein Urine Negative (Negative); Specific Gravity Urine 1.015 (1.000-1.030); Urobilinogen Urine Negative (Negative); pH Urine 6.5 (4.5-7.5)
[2020-09-01] MEDS ORDERED: VANCOMYCIN CONSULT ACTIVE PRN (23:56)
[2020-09-01] MEDS ORDERED: VANCOMYCIN HCL 1,500 MG in SODIUM CHLORIDE 0.9% 500 ML IV ONE (23:56)
--- NOTE | 2020-09-01 23:59 | Emergency Department Note ---
Impression & Plan Neutropenic fever, Pancytopenia, Metastatic cancer ED Provider Note NAME: BETHANY DAWSON AGE: 55 SEX: F ARRIVES VIA: Walk-In INFORMANT: patient ED PROVIDER(S): Dom Lovett MD CHIEF COMPLAINT: fever, recent chemo PLAN: Disposition: Admit MEDICAL DECISION MAKING: The patient is a pleasant 55 y/o woman with a pmhx of metastatic duodenal adenocarcinoma who presents to the emergency department with fever to 100.8 in the setting of having chemotherapy a week ago. She reports nausea and diarrhea that have been chronic while on chemotherapy. She reports generalized bodyaches, weakness. Denies cough, congestion. On arrival the patient is uncomfortable/ill appearing but in NAD, AFVSS. She appears clinically dry. She exhibits generalized abdominal tenderness without guarding or rebound. Prior peg tube site healing by secondary intention. EKG without overt acute ischemia. CXR negative for acute cardiopulmonary process . Pancytopenia with WBC 0.23, neutropenia presumed. VBG unremarkable. Chemistry without acidosis. Lactate wnl. Electrolytes unremarkable. LFTs without significant abnormality. Troponin negative/undetectable. Lipase is note elevated. Procalcitonin is not elevated. UA without convincing evidence of infection. Covid-19 PCR negative. CTA chest and CT abd/pelvis negative for acute process per preliminary [facility] report. Patient feeling mild improvement after IVF, Compazine, Diphenhydramine, Pepcid. Empiric broad spectrum ABX with Cefepime, Flagyl, Vancomycin given neutropenic fever. Patient agrees with plan for admission. Case was [place] [facility] [place] who will evaluate the patient for admission. Triage Nursing notes reviewed and agree them. prior medical records reviewed Vital Signs: reviewed and remarkable for no significant abnormalities Differential diagnosis: Viral syndrome, otitis, pharyngitis, pneumonia, influenza, meningitis, urinary tract infection, sepsis, bacteremia, as well as other pathologies. ER treatment provided: See below. Diagnostics interpreted by me: ECG: NSR, 86 bpm, no ectopy, no overt ST elevation or depression. Cardiac Monitoring: An order for continuous cardiac monitoring was placed and demonstrated NSR, 86 bpm, no ectopy. Laboratory studies: see below Imaging studies: CXR: No acute cardiopulmonary process per my preliminary review. [facility] Preliminary Findings Only See Final Report For Complete Findings CTA CHEST: No pulmonary embolism. No acute aortic syndrome. Heart size is normal. Lungs are clear. No pleural effusion or pneumothorax. Port-A-Cath in place. Biliary drains in place. Radiologist: Dusty Flores MD Study ready at 23:06 and initial results transmitted at 23:27 -- Preliminary Findings Only See Final Report For Complete Findings CT ABDOMEN & PELVIS With Contrast: Multiple biliary drains in place with pneumobilia. Duodenal thickening. No obstruction. No free air, fluid or fluid collection. Hepatic steatosis. Pancreas, spleen, and kidneys unremarkable. Hysterectomy. Superior endplate compression deformity at L2 favored chronic. Correlate for point tenderness. Radiologist: Dusty Flores MD Study ready at 23:07 and initial results transmitted at 23:29 Consultation(s): Case was discussed with Dr. Chaudhari, [facility] [place], who will evaluate the patient for admission. HPI: The patient is a pleasant 55 y/o woman with a pmhx of metastatic duodenal adenocarcinoma who presents to the emergency department with fever to 100.8 in the setting of having chemotherapy a week ago. She reports nausea and diarrhea that have been chronic while on chemotherapy. She reports generalized bodyaches, weakness. Denies cough, congestion. ROS: See above HPI for pertinent positives & negatives. A total of 10 systems reviewed and were otherwise negative. PAST MEDICAL HISTORY: see Below PAST SURGICAL HISTORY:See Below FAMILY HISTORY:See Below SOCIAL HISTORY: see Below HOME MEDICATIONS: see Below ALLERGIES: see Below VITALS: see Below PHYSICAL EXAMINATION: GENERAL: Awake, alert, fatigued/ill-appearing, in no distress HENT: Normocephalic, atraumatic. Oropharynx with dry mucous membranes and othe rwise unremarkable. EYES: Normal conjunctiva. Sclera non-icteric. NECK: Supple. No nuchal rigidity. FROM. No JVD. RESPIRATORY: Clear to auscultation. CARDIAC: Regular rate, normal rhythm. Extremities warm and well perfused. Pulses equal. ABDOMEN: Soft, non-distended. Generalized abdominal tenderness without guarding or rebound. Prior peg tube site healing by secondary intention. No rebound or guarding. No masses. RECTAL: Deferred. MUSCULOSKELETAL: Chest examination reveals no tenderness. The back is symmetrical on inspection without obvious abnormality. There is no CVA tenderness to palpation. No joint edema. LOWER EXTREMITIES: Calves are equal size bilaterally and non-tender. No edema. No discoloration. NEURO: Normal sensorium. No sensory or motor deficits noted. SKIN: No rash or jaundice noted. ED COURSE: Critical Care: I have personally spent greater than 35 minutes of critical care time in the direct management of this patient. This includes bedside care, interpretation of diagnostic studies, and testing, discussion with consultants, patient, and family members, and other required patient management activities. This 35 minutes is in excess of all separately billable procedures. Dom Lovett MD Past Med/Surg History Medical History Acid reflux Anxiety 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 Depression Duodenal adenocarcinoma Fibromyalgia Hyperlipidemia Migraine hx of and no longer a problem Surgical History History of tubal ligation Hx of bilateral breast reduction surgery (2013) S/P total hysterectomy and bilateral salpingo-oophorectomy d/t endometriosis Family History Mother Myocardial infarction, Onset Age: 58 Anxiety Uterine cancer Depression Diabetes Heart disease Hypertension Kidney disease Lung disease Lung cancer Multiple sclerosis Grandmother (Paternal) Colorectal cancer Breast cancer Father Prostate cancer, Onset Age: 72 Gallbladder disease Hypertension Brother Anxiety Drug abuse Hypertension Kidney stones Grandmother (Maternal) Anxiety Gallbladder disease Aunt Stomach cancer, Onset Age: 67 Esophageal cancer, Onset Age: 67 Denies family history of Ovarian cancer Social History Smoking Status: Former smoker Age Started Using Tobacco: 17; Age Quit Using Tobacco: 38; packs per day: 0.75; Years Smoked: 21; Second Hand Exposure: No; Hx Alcohol Use: No Hx Substance Use: No Preferred Language: Turkish Communication Ability: Effective Visual Impairment: No Limitations Hearing Ability: Normal Master Rigger Required: No Beliefs That Will Affect Care: None marital status: Current Living Situation: Spouse and Family Current Living Situation Comment: and 6 children current occupational status: other current occupation: homemaker How many Children do You have: 7 Other Information That Helps Us Care for You: No Feels Safe at Home: Yes Safety Concerns: Feels Safe At This Time Dental Care, Regularly: Yes Physical Activity Frequency: 1-2 Times per Week Physical Activity Frequency Comment: walking Seatbelt Use: always Assistive Devices: None Allergies Allergies Allergy/AdvReac Type Severity Reaction Status Date / Time epinephrine Allergy Intermediate heart Verified 09/01/20 21:31 palpitations, itching, rash, muscle pain lidocaine Allergy Intermediate heart Verified 09/01/20 21:31 palpitations, itching rash muscle pain Penicillins Allergy Mild rash and Verified 09/01/20 21:31 fever amoxicillin AdvReac Mild fever, rash Verified 09/01/20 21:31 Home Meds Home Medications Medication Instructions Recorded Confirmed cholecalciferol (vitamin D3) 50 mcg PO DAILY 09/01/20 09/01/20 [Vitamin D3] ondansetron HCl 8 mg PO Q8 09/01/20 09/01/20 pantoprazole 40 mg PO DAILY 09/01/20 09/01/20 zinc 50 mg PO TID 09/01/20 09/01/20 Results & Data (ED) Vital Signs Vital Signs - 24 hr 09/01/20 20:35 09/01/20 22:38 09/01/20 22:40 Temperature 37.0 C Temperature Source Temporal Artery Scan Pulse Rate 116 H 81 77 Pulse Rate [Apical] Pulse Rate from SpO2 Sensor 81 77 Pulse Rhythm [Apical] Pulse Strength [Apical] Respiratory Rate 18 13 16 Respiratory Effort / Characteristics Respiratory Depth Respiratory Pattern Blood Pressure 136/85 Blood Pressure [Left Arm] Blood Pressure Mean 102 Blood Pressure Mean [Left Arm] Blood Pressure Position [Left Arm] Pulse Oximetry 95 100 99 Oxygen Delivery Method Room Air Sepsis Recent Fever Within 48 Hours Yes Sepsis New/Unexplained Change in Mental Status No Sepsis Action Taken by Nursing No Action Required 09/01/20 22:47 09/01/20 23:00 09/01/20 23:10 Temperature Temperature Source Pulse Rate 84 79 Pulse Rate [Apical] 82 Pulse Rate from SpO2 Sensor 79 Pulse Rhythm [Apical] Regular Pulse Strength [Apical] Normal Respiratory Rate 16 16 Respiratory Effort / Characteristics Non-Labored Non-Labored Respiratory Depth Normal Respiratory Pattern Regular Blood Pressure Blood Pressure [Left Arm] 125/62 Blood Pressure Mean Blood Pressure Mean [Left Arm] 83 Blood Pressure Position [Left Arm] Lying Pulse Oximetry 99 98 97 Oxygen Delivery Method Room Air Room Air Sepsis Recent Fever Within 48 Hours Sepsis New/Unexplained Change in Mental Status Sepsis Action Taken by Nursing 09/01/20 23:11 09/01/20 23:15 09/01/20 23:20 Temperature Temperature Source Pulse Rate 79 78 81 Pulse Rate [Apical] 78 Pulse Rate from SpO2 Sensor 80 78 81 Pulse Rhythm [Apical] Regular Pulse Strength [Apical] Normal Respiratory Rate 18 18 17 Respiratory Effort / Characteristics Non-Labored Respiratory Depth Normal Respiratory Pattern Blood Pressure 125/62 112/58 L Blood Pressure [Left Arm] 112/58 L Blood Pressure Mean 83 76 Blood Pressure Mean [Left Arm] 76 Blood Pressure Position [Left Arm] Sitting Pulse Oximetry 99 98 98 Oxygen Delivery Method Room Air Sepsis Recent Fever Within 48 Hours Sepsis New/Unexplained Change in Mental Status Sepsis Action Taken by Nursing 09/01/20 23:30 09/01/20 23:31 09/01/20 23:40 Temperature 37.4 C Temperature Source Oral Pulse Rate 82 81 86 Pulse Rate [Apical] 80 Pulse Rate from SpO2 Sensor 82 81 84 Pulse Rhythm [Apical] Regular Pulse Strength [Apical] Normal Respiratory Rate 17 20 14 Respiratory Effort / Characteristics Non-Labored Respiratory Depth Normal Respiratory Pattern Blood Pressure 119/59 L Blood Pressure [Left Arm] 119/59 L Blood Pressure Mean 79 Blood Pressure Mean [Left Arm] 79 Blood Pressure Position [Left Arm] Lying Pulse Oximetry 99 99 97 Oxygen Delivery Method Room Air Sepsis Recent Fever Within 48 Hours Sepsis New/Unexplained Change in Mental Status Sepsis Action Taken by Nursing 09/01/20 23:45 09/01/20 23:50 09/02/20 00:00 Temperature Temperature Source Pulse Rate 80 81 88 Pulse Rate [Apical] 79 87 Pulse Rate from SpO2 Sensor 79 81 89 Pulse Rhythm [Apical] Regular Regular Pulse Strength [Apical] Normal Normal Respiratory Rate 17 18 17 Respiratory Effort / Characteristics Non-Labored Non-Labored Respiratory Depth Normal Normal Respiratory Pattern Regular Regular Blood Pressure 115/57 L 128/55 L Blood Pressure [Left Arm] 115/57 L 128/55 L Blood Pressure Mean 76 79 Blood Pressure Mean [Left Arm] 76 79 Blood Pressure Position [Left Arm] Lying Lying Pulse Oximetry 96 97 97 Oxygen Delivery Method Room Air Room Air Sepsis Recent Fever Within 48 Hours Sepsis New/Unexplained Change in Mental Status Sepsis Action Taken by Nursing 09/02/20 00:01 09/02/20 00:10 09/02/20 00:15 Temperature Temperature Source Pulse Rate 90 91 H 87 Pulse Rate [Apical] Pulse Rate from SpO2 Sensor 91 H 91 H 87 Pulse Rhythm [Apical] Pulse Strength [Apical] Respiratory Rate 19 18 17 Respiratory Effort / Characteristics Respiratory Depth Respiratory Pattern Blood Pressure 113/56 L Blood Pressure [Left Arm] Blood Pressure Mean 75 Blood Pressure Mean [Left Arm] Blood Pressure Position [Left Arm] Pulse Oximetry 97 96 98 Oxygen Delivery Method Sepsis Recent Fever Within 48 Hours Sepsis New/Unexplained Change in Mental Status Sepsis Action Taken by Nursing 09/02/20 00:20 09/02/20 00:25 09/02/20 00:30 Temperature Temperature Source Pulse Rate 92 H 93 H Pulse Rate [Apical] Pulse Rate from SpO2 Sensor 90 92 H Pulse Rhythm [Apical] Pulse Strength [Apical] Respiratory Rate 17 8 L Respiratory Effort / Characteristics Non-Labored Respiratory Depth Respiratory Pattern Blood Pressure 122/61 Blood Pressure [Left Arm] Blood Pressure Mean 81 Blood Pressure Mean [Left Arm] Blood Pressure Position [Left Arm] Pulse Oximetry 98 97 Oxygen Delivery Method Room Air Sepsis Recent Fever Within 48 Hours Sepsis New/Unexplained Change in Mental Status Sepsis Action Taken by Nursing 09/02/20 00:31 09/02/20 00:40 09/02/20 00:45 Temperature Temperature Source Pulse Rate 103 H 79 83 Pulse Rate [Apical] Pulse Rate from SpO2 Sensor 104 H 80 83 Pulse Rhythm [Apical] Pulse Strength [Apical] Respiratory Rate 17 16 17 Respiratory Effort / Characteristics Respiratory Depth Respiratory Pattern Blood Pressure 111/62 Blood Pressure [Left Arm] Blood Pressure Mean 78 Blood Pressure Mean [Left Arm] Blood Pressure Position [Left Arm] Pulse Oximetry 98 98 98 Oxygen Delivery Method Sepsis Recent Fever Within 48 Hours Sepsis New/Unexplained Change in Mental Status Sepsis Action Taken by Nursing 09/02/20 00:50 09/02/20 01:00 09/02/20 01:01 Temperature Temperature Source Pulse Rate 82 84 83 Pulse Rate [Apical] Pulse Rate from SpO2 Sensor 83 84 83 Pulse Rhythm [Apical] Pulse Strength [Apical] Respiratory Rate 17 16 16 Respiratory Effort / Characteristics Non-Labored Respiratory Depth Respiratory Pattern Blood Pressure 121/59 L Blood Pressure [Left Arm] Blood Pressure Mean 79 Blood Pressure Mean [Left Arm] Blood Pressure Position [Left Arm] Pulse Oximetry 98 98 98 Oxygen Delivery Method Room Air Sepsis Recent Fever Within 48 Hours Sepsis New/Unexplained Change in Mental Status Sepsis Action Taken by Nursing Laboratory Data Attestation: I reviewed the patient's lab results. Result diagrams: 09/01/20 21:50 09/01/20 21:50 Lab Results 09/01/20 09/01/20 09/01/20 Range/Units 21:50 21:50 21:50 WBC 0.23 L* (4.8-10.8) K/uL RBC 3.38 L (4.2-5.4) M/uL Hgb 10.7 L (12.0-16.0) g/dL Hct 31.2 L (37-47) % MCV 92.3 (80-100) fL MCH 31.7 (25-34) pg MCHC 34.3 (32-36) g/dL RDW Std Deviation 41.9 (36.4-46.3) fL RDW Coeff of Sarai 12.3 (11.5-14.5) % Plt Count 81 L (130-400) K/uL MPV 10.1 (7.4-10.4) fL Immature Gran % (Auto) Cancelled Neut % (Auto) Cancelled Lymph % (Auto) Cancelled [place] % (Auto) Cancelled Eos % (Auto) Cancelled Baso % (Auto) Cancelled Neut # (Auto) Cancelled Lymph # (Auto) Cancelled [place] # (Auto) Cancelled Eos # (Auto) Cancelled Baso # (Auto) Cancelled Immature Gran # (Auto) Cancelled Neutrophils % (Manual) Cancelled Band Neutrophils % Cancelled Lymphocytes % (Manual) Cancelled Prolymphocyte % Cancelled Reactive Lymphs % (Man) Cancelled Monocytes % (Manual) Cancelled Eosinophils % (Manual) Cancelled Basophils % (Manual) Cancelled Metamyelocytes % (Man) Cancelled Myelocytes % (Man) Cancelled Promyelocytes % (Man) Cancelled Blast Cells % (Manual) Cancelled Plasma Cell % (Manual) Cancelled Other Cells % Cancelled Nucleated RBC % Cancelled Neutrophils # (Manual) Cancelled Band Neutrophils # Cancelled Total Absolute Neuts Cancelled Lymphocytes # (Manual) Cancelled Prolymphocyte # Cancelled Reactive Lymphs # Cancelled Total Abs Lymphocytes Cancelled Monocytes # (Manual) Cancelled Eosinophils # (Manual) Cancelled Basophils # (Manual) Cancelled Metamyelocytes # (Man) Cancelled Myelocytes # (Manual) Cancelled Promyelocytes # (Man) Cancelled Blast Cells # (Man) Cancelled Plasma Cell # (Manual) Cancelled Other Cells # Cancelled Nucleated RBCs # (Man) Cancelled Hypersegmented Neuts Cancelled Hyposegmented Neuts Cancelled Hypogranular Neuts Cancelled Large Granular Lymphs Cancelled # Lrg Granular Lymphs Cancelled Hairy Cells Cancelled Smudge Cells Cancelled Toxic Granulation Cancelled Toxic Vacuolation Cancelled Dohle Bodies Cancelled Marisela Rods Cancelled Platelet Estimate Decreased L (Normal) Hypogranular Platelets Cancelled Clumped Platelets Cancelled Giant Platelets Cancelled Platelet Satelliting Cancelled RBC Morphology Cancelled Polychromasia Cancelled Hypochromasia Cancelled Poikilocytosis Cancelled Basophilic Stippling Cancelled Anisocytosis Cancelled Microcytosis Cancelled Macrocytosis Cancelled Spherocytes Cancelled Pappenheimer Bodies Cancelled Sickle Cells Cancelled Target Cells Cancelled Tear Drop Cells Cancelled Ovalocytes Cancelled Stomatocytes Cancelled Mitchell-Ol[place] Bodies Cancelled Echinocytes Cancelled Acanthocytes (Spur) Cancelled Rouleaux Cancelled RBC Agglutinates Cancelled Schistocytes Cancelled RBC Morph Comment Cancelled Sezary Cell Cancelled PT 9.5 (9.0-12.0) Seconds INR 0.9 (0.9-1.1) APTT 22.9 (21.0-31.0) Seconds PTT Ratio 0.9 VBG pH (7.36-7.41) VBG pCO2 (38-50) mmHg VBG pO2 mmHg VBG HCO3 mmol/L VBG O2 Saturation % VBG Base Excess mEq/L Barometric Pressure mm/Hg Sodium 134 L (136-145) mmol/L Potassium 3.8 (3.5-5.1) mmol/L Chloride 100 (98-107) mmol/L Carbon Dioxide 31 (21-32) mmol/L Anion Gap 4.0 (3-11) BUN 7 (7-18) mg/dl Creatinine 0.60 (0.6-1.2) mg/dl Est Cr Clr Drug Dosing 89.3 ml/min Est GFR ( Amer) 117.3 ml/min Est GFR (Non-Af Amer) 101.2 ml/min BUN/Creatinine Ratio 11.4 (10-20) Glucose 102 H (70-99) mg/dl Lactate (0.4-2.0) mmol/L Calcium 8.9 (8.5-10.1) mg/dl Phosphorus 2.6 (2.5-4.9) mg/dl Magnesium 2.1 (1.8-2.4) mg/dl Total Bilirubin 1.0 (0.2-1) mg/dl Direct Bilirubin 0.3 H (0-0.2) mg/dl AST 30 (15-37) U/L ALT 24 (12-78) U/L Alkaline Phosphatase 273 H (45-117) U/L Troponin I < 0.015 (0-0.045) ng/ml Total Protein 6.0 L (6.4-8.2) gm/dl Albumin 2.6 L (3.4-5.0) gm/dl Globulin 3.4 (2.5-4.0) gm/dl Albumin/Globulin Ratio 0.8 L (0.9-2) Lipase 32 L (73-393) U/L Procalcitonin (0-0.5) ng/ml Urine Color Urine Appearance (Clear) Urine pH (4.5-7.5) Ur Specific [place] (1.000-1.030) Urine Protein (Negative) Urine Glucose (UA) (Negative) Urine Ketones (Negative) Urine Blood (Negative) Urine Nitrite (Negative) Urine Bilirubin (Negative) Urine Urobilinogen (Negative) Ur Leukocyte Esterase (Negative) COVID-19 Eval Order SARS-CoV-2 (PCR) (Negative) 09/01/20 09/01/20 09/01/20 Range/Units 21:50 21:50 21:50 WBC (4.8-10.8) K/uL RBC (4.2-5.4) M/uL Hgb (12.0-16.0) g/dL Hct (37-47) % MCV (80-100) fL MCH (25-34) pg MCHC (32-36) g/dL RDW Std Deviation (36.4-46.3) fL RDW Coeff of Sarai (11.5-14.5) % Plt Count (130-400) K/uL MPV (7.4-10.4) fL Immature Gran % (Auto) Neut % (Auto) Lymph % (Auto) [place] % (Auto) Eos % (Auto) Baso % (Auto) Neut # (Auto) Lymph # (Auto) [place] # (Auto) Eos # (Auto) Baso # (Auto) Immature Gran # (Auto) Neutrophils % (Manual) Band Neutrophils % Lymphocytes % (Manual) Prolymphocyte % Reactive Lymphs % (Man) Monocytes % (Manual) Eosinophils % (Manual) Basophils % (Manual) Metamyelocytes % (Man) Myelocytes % (Man) Promyelocytes % (Man) Blast Cells % (Manual) Plasma Cell % (Manual) Other Cells % Nucleated RBC % Neutrophils # (Manual) Band Neutrophils # Total Absolute Neuts Lymphocytes # (Manual) Prolymphocyte # Reactive Lymphs # Total Abs Lymphocytes Monocytes # (Manual) Eosinophils # (Manual) Basophils # (Manual) Metamyelocytes # (Man) Myelocytes # (Manual) Promyelocytes # (Man) Blast Cells # (Man) Plasma Cell # (Manual) Other Cells # Nucleated RBCs # (Man) Hypersegmented Neuts Hyposegmented Neuts Hypogranular Neuts Large Granular Lymphs # Lrg Granular Lymphs Hairy Cells Smudge Cells Toxic Granulation Toxic Vacuolation Dohle Bodies Marisela Rods Platelet Estimate (Normal) Hypogranular Platelets Clumped Platelets Giant Platelets Platelet Satelliting RBC Morphology Polychromasia Hypochromasia Poikilocytosis Basophilic Stippling Anisocytosis Microcytosis Macrocytosis Spherocytes Pappenheimer Bodies Sickle Cells Target Cells Tear Drop Cells Ovalocytes Stomatocytes Mitchell-[place] Bodies Echinocytes Acanthocytes (Spur) Rouleaux RBC Agglutinates Schistocytes RBC Morph Comment Sezary Cell PT (9.0-12.0) Seconds INR (0.9-1.1) APTT (21.0-31.0) Seconds PTT Ratio VBG pH 7.43 H (7.36-7.41) VBG pCO2 49 (38-50) mmHg VBG pO2 24 mmHg VBG HCO3 31 mmol/L VBG O2 Saturation < 60.0 % VBG Base Excess 6.2 mEq/L Barometric Pressure 734.5 mm/Hg Sodium (136-145) mmol/L Potassium (3.5-5.1) mmol/L Chloride (98-107) mmol/L Carbon Dioxide (21-32) mmol/L Anion Gap (3-11) BUN (7-18) mg/dl Creatinine (0.6-1.2) mg/dl Est Cr Clr Drug Dosing ml/min Est GFR ( Amer) ml/min Est GFR (Non-Af Amer) ml/min BUN/Creatinine Ratio (10-20) Glucose (70-99) mg/dl Lactate 0.7 (0.4-2.0) mmol/L Calcium (8.5-10.1) mg/dl Phosphorus (2.5-4.9) mg/dl Magnesium (1.8-2.4) mg/dl Total Bilirubin (0.2-1) mg/dl Direct Bilirubin (0-0.2) mg/dl AST (15-37) U/L ALT (12-78) U/L Alkaline Phosphatase (45-117) U/L Troponin I (0-0.045) ng/ml Total Protein (6.4-8.2) gm/dl Albumin (3.4-5.0) gm/dl Globulin (2.5-4.0) gm/dl Albumin/Globulin Ratio (0.9-2) Lipase (73-393) U/L Procalcitonin 0.10 (0-0.5) ng/ml Urine Color Urine Appearance (Clear) Urine pH (4.5-7.5) Ur Specific [place] (1.000-1.030) Urine Protein (Negative) Urine Glucose (UA) (Negative) Urine Ketones (Negative) Urine Blood (Negative) Urine Nitrite (Negative) Urine Bilirubin (Negative) Urine Urobilinogen (Negative) Ur Leukocyte Esterase (Negative) COVID-19 Eval Order SARS-CoV-2 (PCR) (Negative) 09/01/20 09/01/20 09/01/20 Range/Units 22:33 22:33 23:37 WBC (4.8-10.8) K/uL RBC (4.2-5.4) M/uL Hgb (12.0-16.0) g/dL Hct (37-47) % MCV (80-100) fL MCH (25-34) pg MCHC (32-36) g/dL RDW Std Deviation (36.4-46.3) fL RDW Coeff of Sarai (11.5-14.5) % Plt Count (130-400) K/uL MPV (7.4-10.4) fL Immature Gran % (Auto) Neut % (Auto) Lymph % (Auto) [place] % (Auto) Eos % (Auto) Baso % (Auto) Neut # (Auto) Lymph # (Auto) [place] # (Auto) Eos # (Auto) Baso # (Auto) Immature Gran # (Auto) Neutrophils % (Manual) Band Neutrophils % Lymphocytes % (Manual) Prolymphocyte % Reactive Lymphs % (Man) Monocytes % (Manual) Eosinophils % (Manual) Basophils % (Manual) Metamyelocytes % (Man) Myelocytes % (Man) Promyelocytes % (Man) Blast Cells % (Manual) Plasma Cell % (Manual) Other Cells % Nucleated RBC % Neutrophils # (Manual) Band Neutrophils # Total Absolute Neuts Lymphocytes # (Manual) Prolymphocyte # Reactive Lymphs # Total Abs Lymphocytes Monocytes # (Manual) Eosinophils # (Manual) Basophils # (Manual) Metamyelocytes # (Man) Myelocytes # (Manual) Promyelocytes # (Man) Blast Cells # (Man) Plasma Cell # (Manual) Other Cells # Nucleated RBCs # (Man) Hypersegmented Neuts Hyposegmented Neuts Hypogranular Neuts Large Granular Lymphs # Lrg Granular Lymphs Hairy Cells Smudge Cells Toxic Granulation Toxic Vacuolation Dohle Bodies Marisela Rods Platelet Estimate (Normal) Hypogranular Platelets Clumped Platelets Giant Platelets Platelet Satelliting RBC Morphology Polychromasia Hypochromasia Poikilocytosis Basophilic Stippling Anisocytosis Microcytosis Macrocytosis Spherocytes Pappenheimer Bodies Sickle Cells Target Cells Tear Drop Cells Ovalocytes Stomatocytes Mitchell-[place] Bodies Echinocytes Acanthocytes (Spur) Rouleaux RBC Agglutinates Schistocytes RBC Morph Comment Sezary Cell PT (9.0-12.0) Seconds INR (0.9-1.1) APTT (21.0-31.0) Seconds PTT Ratio VBG pH (7.36-7.41) VBG pCO2 (38-50) mmHg VBG pO2 mmHg VBG HCO3 mmol/L VBG O2 Saturation % VBG Base Excess mEq/L Barometric Pressure mm/Hg Sodium (136-145) mmol/L Potassium (3.5-5.1) mmol/L Chloride (98-107) mmol/L Carbon Dioxide (21-32) mmol/L Anion Gap (3-11) BUN (7-18) mg/dl Creatinine (0.6-1.2) mg/dl Est Cr Clr Drug Dosing ml/min Est GFR ( Amer) ml/min Est GFR (Non-Af Amer) ml/min BUN/Creatinine Ratio (10-20) Glucose (70-99) mg/dl Lactate (0.4-2.0) mmol/L Calcium (8.5-10.1) mg/dl Phosphorus (2.5-4.9) mg/dl Magnesium (1.8-2.4) mg/dl Total Bilirubin (0.2-1) mg/dl Direct Bilirubin (0-0.2) mg/dl AST (15-37) U/L ALT (12-78) U/L Alkaline Phosphatase (45-117) U/L Troponin I (0-0.045) ng/ml Total Protein (6.4-8.2) gm/dl Albumin (3.4-5.0) gm/dl Globulin (2.5-4.0) gm/dl Albumin/Globulin Ratio (0.9-2) Lipase (73-393) U/L Procalcitonin (0-0.5) ng/ml Urine Color Dark Yellow Urine Appearance Clear (Clear) Urine pH 6.5 (4.5-7.5) Ur Specific [place]ila 1.015 (1.000-1.030) Urine Protein Negative (Negative) Urine Glucose (UA) Negative (Negative) Urine Ketones Trace H (Negative) Urine Blood Negative (Negative) Urine Nitrite Negative (Negative) Urine Bilirubin Negative (Negative) Urine Urobilinogen Negative (Negative) Ur Leukocyte Esterase Negative (Negative) COVID-19 Eval Order Covid19 at [facility] SARS-CoV-2 (PCR) NEGATIVE (Negative) Administered Medications Metronidazole (Flagyl) 500 mg in 100 mls @ 100 mls/hr IV Q8H ZHANE Stop: 09/04/20 02:29 Last Infusion: 09/02/20 03:32 Dose: 0 mls/hr Documented by: [id number] Admin: 09/02/20 02:32 Dose: 100 mls/hr Documented by: [id number] Sodium Chloride (Nss 1000ml) 1,000 mls @ 80 mls/hr IV .[id number] ZHANE Stop: 10/02/20 02:06 Last Infusion: 09/02/20 03:32 Dose: 80 mls/hr Documented by: [id number] Infusion: 09/02/20 02:36 Dose: 0 mls/hr Documented by: [id number] Admin: 09/02/20 02:27 Dose: 80 mls/hr Documented by: [id number] Discontinued Medications Diphenhydramine HCl (Diphenhydramine 50 Mg/Ml Vial) 25 mg IV NOW STA Stop: 09/01/20 21:38 Last Admin: 09/01/20 22:14 Dose: 25 mg Documented by: [id number] Sodium Chloride (Nss 1000ml) 1,000 mls @ 999 mls/hr IV .Q1H1M ONE Stop: 09/01/20 22:35 Last Infusion: 09/02/20 00:01 Dose: 0 mls/hr Documented by: [id number] Admin: 09/01/20 22:15 Dose: 999 mls/hr Documented by: [id number] Prochlorperazine (Compazine) 2 mls @ 1 mls/min IV ONE ONE Stop: 09/01/20 21:38 Last Admin: 09/01/20 22:14 Dose: 1 mls/min Documented by: [id number] Famotidine (Pepcid 20mg Iv Push) 20 mg in 5 mls @ 2.5 mls/min IV NOW STA Stop: 09/01/20 21:38 Last Admin: 09/01/20 22:14 Dose: 2.5 mls/min Documented by: [id number] Cefepime HCl (Maxipime) 2,000 mg in 20 mls @ 5 mls/min IV NOW STA; Protocol Stop: 09/01/20 21:49 Last Admin: 09/01/20 23:58 Dose: 5 mls/min Documented by: [id number] Metronidazole (Flagyl) 500 mg in 100 mls @ 100 mls/hr IV NOW STA Stop: 09/01/20 22:45 Last Infusion: 09/02/20 01:01 Dose: 0 mls/hr Documented by: [id number] Admin: 09/01/20 23:59 Dose: 100 mls/hr Documented by: [id number] Vancomycin HCl 1,500 mg/ (Sodium Chloride) 530 mls @ 200 mls/hr IV NOW ONE Stop: 09/02/20 02:34 Last Infusion: 09/02/20 04:24 Dose: 0 mls/hr Documented by: [id number] Admin: 09/02/20 01:21 Dose: 200 mls/hr Documented by: [id number] Ioversol (Optiray 350 500ml) 104 ml IV ONCE ONE Stop: 09/01/20 22:53 Last Admin: 09/01/20 22:54 Dose: 104 ml Documented by: [id number] Discharge Plan Visit Data Chief Complaint: Fever Stated Complaint: FEVER, AB PAIN, CHILLS, BODY ACHES ED Provider: Dom Lovett Discharge Problem: Neutropenic fever, Pancytopenia, Metastatic cancer Patient Disposition: Admitted As Inpatient Discharge Instructions Interventions: ED Discharge Assessment Last Done: 09/02/20 02:27 Discharge Problem: Metastatic cancer Qualifiers: Area of secondary neoplastic involvement: unspecified site Qualified Code(s): C79.9 - Secondary malignant neoplasm of unspecified site
--- NOTE | 2020-09-02 00:37 | History & Physical Report ---
Date of Service September 02, 2020 Assessment & Plan (1) Fever: Patient is a 55 year old female with PMHx Metastatic duodenal adenocarcinoma, depression, HLD, fibromyalgia, anxiety, GERD, endometriosis, who presents after having a fever of 101.7F earlier this afternoon and notified by her oncology office to go to the ED for evaluation. Leukopenic Fever (suspect neutropenic) -Suspected neutropenic fever in patient receiving chemotherapy for metastatic duodenal adenocarcinoma -No obvious source at this time, though with abdominal discomfort, "urine symptoms," consider UTI -Started on Vanc, Cefepime, Flagyl in ED -Will continue Cefepime and Flagyl -Continue Vancomycin due to patient having a port -Blood cultures drawn from peripherals x2 in addition to from port -Urine culture ordered -CT Ab/Pelv stat read without obvious infectious etiology - await final read -CXR without obvious focality with normal lung exam -Repeat CBC with diff in AM to calculate ANC -Patient's most recent oncology visit printed and placed in chart -Neupogen not given at this time Metastatic Duodenal Adenocarcinoma -Follows with [facility] [place] -Zofran PRN nausea -Pain control PRN, currently having no pain -Alk Phos elevated 273, suspect secondary to mets GERD -Continue Protonix Dispo: Med/Surg for monitoring and neutropenic precautions. FEN: NPO at this time, suspect patient has dietary restrictions to some extent from previous gastroduodenostomy, would follow up in AM for diet. NSS 80ml/hr while NPO DVT: Lovenox sq Code: Full (2) Duodenal adenocarcinoma: History of Present Illness Chief Complaint: Fever Primary Care Provider: Jenny Valdez DO Patient is a 55 year old female with PMHx Metastatic duodenal adenocarcinoma, depression, HLD, fibromyalgia, anxiety, GERD, endometriosis, who presents after having a fever of 101.7F earlier this afternoon and notified by her oncology office to go to the ED for evaluation. Patient notes that she started a new chemotherapy on 08/25/20 (Irinotecan) with plans for 21 day doses for a couple of months before repeat images. Patient notes that since starting the chemotherapy she has had worsening nausea, dizziness, "chills in bones," stomach pains, diarrhea progressing towards constipation, and starting today fevers. She denies any SOB, chest pain, chest pressure. She does note a severe lack of appetite in addition to feeling that her "urine felt warmer than usual today." She denies dysuria otherwise. She denies any recent injuries. She does note that she had her J-tube removed on 07/28/20 and the site has been leaking. She has kept it uncovered as advised by her surgeon. She recently switched her oncologic care form [facility] to [facility] [place] (most recent visit printed in chart). Med Hx: Metastatic duodenal adenocarcinoma, depression, HLD, fibromyalgia, anxiety, GERD, endometriosis Surg Hx: Hysterectomy, B/L breast reduction, Bypass gastrojejunostomy with subsequent J-tube placement Soc Hx: Quit smoking 16 years ago, no alcohol or illicit drug use. Allergies Allergy/AdvReac Type Severity Reaction Status Date / Time epinephrine Allergy Intermediate heart Verified 09/01/20 21:31 palpitations, itching, rash, muscle pain lidocaine Allergy Intermediate heart Verified 09/01/20 21:31 palpitations, itching rash muscle pain Penicillins Allergy Mild rash and Verified 09/01/20 21:31 fever amoxicillin AdvReac Mild fever, rash Verified 09/01/20 21:31 Home Medications Medication Instructions Recorded Confirmed Type cholecalciferol (vitamin D3) 50 mcg PO DAILY 09/01/20 09/01/20 History [Vitamin D3] ondansetron HCl 8 mg PO Q8 09/01/20 09/01/20 History pantoprazole 40 mg PO DAILY 09/01/20 09/01/20 History zinc 50 mg PO TID 09/01/20 09/01/20 History Past Med/Surg History Medical History Acid reflux Anxiety 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 Depression Duodenal adenocarcinoma Fibromyalgia Hyperlipidemia Migraine hx of and no longer a problem Surgical History History of tubal ligation Hx of bilateral breast reduction surgery (2013) S/P total hysterectomy and bilateral salpingo-oophorectomy d/t endometriosis Family History Mother Myocardial infarction, Onset Age: 58 Anxiety Uterine cancer Depression Diabetes Heart disease Hypertension Kidney disease Lung disease Lung cancer Multiple sclerosis Grandmother (Paternal) Colorectal cancer Breast cancer Father Prostate cancer, Onset Age: 72 Gallbladder disease Hypertension Brother Anxiety Drug abuse Hypertension Kidney stones Grandmother (Maternal) Anxiety Gallbladder disease Aunt Stomach cancer, Onset Age: 67 Esophageal cancer, Onset Age: 67 Denies family history of Ovarian cancer Social History Smoking Status: Former smoker Age Started Using Tobacco: 17; Age Quit Using Tobacco: 38; packs per day: 0.75; Years Smoked: 21; Second Hand Exposure: No; Hx Alcohol Use: No Hx Substance Use: No Preferred Language: Tamazight Communication Ability: Effective Visual Impairment: No Limitations Hearing Ability: Normal Pulling Unit Floorhand Required: No Beliefs That Will Affect Care: None marital status: Current Living Situation: Spouse and Family Current Living Situation Comment: and 6 children current occupational status: other current occupation: homemaker How many Children do You have: 7 Other Information That Helps Us Care for You: No Feels Safe at Home: Yes Safety Concerns: Feels Safe At This Time Dental Care, Regularly: Yes Physical Activity Frequency: 1-2 Times per Week Physical Activity Frequency Comment: walking Seatbelt Use: always Assistive Devices: None Review of Systems Review of Systems: All systems reviewed & are unremarkable except as noted in Subjective Physical Exam Constitutional: cooperative Patient appears very tired and flat Eyes: PERRL, conjunctivae normal, anicteric sclerae ENMT: external ear and nose normal, oropharynx normal Neck: trachea midline, no thyromegaly Respiratory: normal respiratory effort, lungs clear to auscultation Cardiovascular: RRR, no murmur, no edema Gastrointestinal (Abdomen): Inspection/Auscultation: abdomen normal to inspection and normal bowel sounds; abdomen not distended Percussion/Palpation: + abdomen tender (Umbilical and suprapubic tenderness ) Previous J-tube site without erythema or current drainage Musculoskeletal: no cyanosis or clubbing, extremities motor strength 5/5 Skin: no rashes, warm and dry Neurologic: PERRL, EOMI, accommodation nl, no face palsy, no dysarthria Psychiatric: Orientation: alert and oriented x 3 Eye Contact: + fair eye contact Affect: + flat affect Results & Data Results & Data ([facility]) Vital Signs (Past 12 Hours) Vital Signs Temp Pulse Pulse Resp BP BP Pulse Ox 09/02/20 00:20 92 H 17 98 09/02/20 00:15 87 17 113/56 L 98 09/02/20 00:10 91 H 18 96 09/02/20 00:01 90 19 97 09/02/20 00:00 88 87 17 128/55 L 128/55 L 97 09/01/20 23:50 81 18 97 09/01/20 23:45 80 79 17 115/57 L 115/57 L 96 09/01/20 23:40 86 14 97 09/01/20 23:31 81 20 99 09/01/20 23:30 37.4 C 82 80 17 119/59 L 119/59 L 99 09/01/20 23:20 81 17 98 09/01/20 23:15 78 78 18 112/58 L 112/58 L 98 09/01/20 23:11 79 18 125/62 99 09/01/20 23:10 79 16 97 09/01/20 23:00 84 82 16 125/62 98 09/01/20 22:47 99 09/01/20 22:40 77 16 99 09/01/20 22:38 81 13 100 09/01/20 20:35 37.0 C 116 H 18 136/85 95 Supervising Physician Co-Signing Physician Notes Patient seen and examined, chart reviewed, case discussed with Dr. Dobson and I agree with his assessment and plan as documented above. Briefly, patient is a 55-year-old female with metastatic duodenal adenocarcinoma recently started on Irinotecan infusion on 08/25/2020 presenting with fever. Source unclear. On exam patient is ill in appearance Skinwarm, dry, intact, no rashes or lesions HEENTnormocephalic/atraumatic, pupils equal round and reactive to light, moist mucous membranes, no oropharyngeal lesions or ulcers, no thrush, no cervical lymphadenopathy, neck supple Heart+ S1/S2, regular, no murmur/rubs/gallops Lungsequal air entry bilaterally no rales/rhonchi/wheezes Abdomen+ bowel sounds, soft, tender with palpation without rebound/guarding/peritoneal signs, prior site of J-tube with wound dehiscence, no drainage/bleeding/erythema Extremitieswarm, well-perfused Labs and images reviewed Significant for WBC = 0.23, Hgb = 10.7, HCT = 31.2, platelet = 81 Alkaline phosphatase = 273 which is near prior values Procalcitonin = 0.[address] Covid negative CT abdomen and pelvis unremarkable, chest x-ray without infiltrate Assessment/plan 55-year-old female presenting with postchemotherapy neutropenic fever. Source unclear. Follow cultures Maintain neutropenic precautions Continue cefepime, vancomycin due to port in place, Flagyl Remainder of plan as above Resident Activity Tracking Resident Involvement: Resident Care Provided Care Provided: Adult Hospital Medicine (1) Fever Fever type: due to other condition Qualified Code(s): R50.81 - Fever presenting with conditions classified elsewhere
[2020-09-02] MEDS ORDERED: VANCOMYCIN CONSULT ACTIVE PRN (02:07)
[2020-09-02] MEDS ORDERED: ACETAMINOPHEN 325 MG TAB PO PRN (02:07)
[2020-09-02] MEDS ORDERED: ONDANSETRON INJ 2 MG/ML 2 ML VIAL IV PRN (02:07)
[2020-09-02] MEDS: SODIUM CHLORIDE 0.9% 1000ML 1,000 ML IV SCH ×2 (02:27→17:22)
[2020-09-02] MEDS: metroNIDAZOLE 500 MG/100 ML BAG IV SCH ×3 (02:32→17:40)
--- NOTE | 2020-09-02 05:11 | Billing Data ---
Date of Service September 02, 2020 Coding Level of Care Code 03473 Initial Inpt Care Lvl 3
[2020-09-02 06:20] LABS: Hematocrit (blood only) 26.8 % (37-47); Hemoglobin 9.1 g/dL (12.0-16.0); Mean Corpuscular Hemoglobin 31.9 pg (25-34); Mean Platelet Volume 10.8 fL (7.4-10.4); Platelet Count 64 K/uL (130-400); RDW Coefficient of Variation 12.2 % (11.5-14.5); RDW Standard Deviation 41.9 fL (36.4-46.3); Red Blood Count 2.85 M/uL (4.2-5.4)
[2020-09-02 06:43] LABS: Albumin Globulin Ratio 0.8 (0.9-2); Albumin Level 2.1 gm/dl (3.4-5.0); BUN Creatinine Ratio 15.1 (10-20); Bilirubin,Total 0.7 mg/dl (0.2-1); Calcium 7.9 mg/dl (8.5-10.1); Creatinine Clr Calc Pharmacy 153.1 ml/min; Est GFR (Non-African American) 120.8 ml/min; Globulin 2.8 gm/dl (2.5-4.0); Potassium 3.5 mmol/L (3.5-5.1); Total Protein 4.9 gm/dl (6.4-8.2)
--- NOTE | 2020-09-02 07:28 | CT Scan Report ---
CT ANGIOGRAPHY OF THE CHEST, PULMONARY EMBOLUS PROTOCOL CLINICAL HISTORY: fever, metastatic duodenal cancer, chest and abdominal pain, r/o PE COMPARISON STUDY: Chest CT September 10, 2019. Chest radiograph November 08, 2019. TECHNIQUE: Following IV administration of 104 mL of Optiray, helical axial images of the chest were o btained utilizing the pulmonary embolus protocol. Maximal intensity projections and sagittal and cor onal reformats were viewed on an independent 3D workstation. IV contrast was administered without co mplication. Automated exposure control was utilized for the study. A dose lowering technique was ut ilized adhering to the principles of ALARA. FINDINGS: Right subclavian [id number] is in place. No pulmonary emboli are identified. There is n o thoracic aortic dissection. No pericardial effusion is noted. There is borderline cardiomegaly. No suspicious pulmonary nodules are present. No consolidation is identified. There is no pneumothorax or pleural effusion. There are multiple old healed bilateral anterior rib fractures. Previously describ ed left supraclavicular lymph nodes on CT of September 10, 2019 has decreased in size. The CT of the abdom en and pelvis will be reported separately. Pneumobilia and biliary stents are better depicted on that examination. IMPRESSION: 1. No pulmonary emboli identified. 2. No acute process within the chest. ACT 112: Negative or not required by law. Electronically signed by: Manuel Clemons M.D. 09/02/2020 7:27 AM
--- NOTE | 2020-09-02 08:47 | XRay Report ---
XR chest 1V portable CLINICAL HISTORY: SEPSIS COMPARISON STUDY: November 08, 2019. FINDINGS: No pneumothorax. No pleural effusion. Minimal focal reticular opacity seen at the left base, new since prior study and might represent smal l atelectasis versus other etiology. Cardiomediastinal silhouette is within normal limits in size. No significant pulmonary vascular congestion.. Osseous structures: unremarkable Stable position of right-sided Chemo-Port. IMPRESSION: 1. Small focal opacity at the left base, likely represent atelectasis. Short-term follow-up with PA and lateral chest radiograph in 4-6 weeks is suggested to document resolution. ACT 112: Positive. There are findings on this exam that require communication between the performing entity and the patient following Patient Test Result Information Act ([place] Act 112) guidelines. The above report was generated using voice recognition software. It may contain grammatical, syntax o r spelling errors. Electronically signed by: Ghada Spears DO 09/02/2020 8:46 AM
[2020-09-02] MEDS: CEFEPIME 2,000 MG in SYRINGE 0 ML IV SCH ×2 (08:48→17:40)
--- NOTE | 2020-09-02 09:28 | CT Scan Report ---
CT abd pelvis IV con only CLINICAL HISTORY: fever, metastatic duod ca COMPARISON STUDY: September 10, 2019 TECHNIQUE: A dose lowering technique was utilized adhering to the principles of ALARA. CT DOSE: 516.01 mGy.cm FINDINGS: Lower chest: Patchy areas of groundglass attenuation predominantly within bilateral lower lobes. 4 mm groundglass nodule is seen within left lower lobe (6/5) heart is normal in size without evidence of pericardial effusion. Liver: Liver is normal in size. Redemonstration of mild prominence of central intrahepatic ducts. Int erval placement of additional biliary stent and new pneumobilia involving right the left lobes of the liver. Gallbladder: Air-fluid level and mucosal enhancement of the gallbladder are seen. No evidence of gall stones. Redemonstration of edema within gallbladder fossa which appear less prominent when compared t o prior study. Spleen: Is slightly prominent measuring 13 cm in anterior-posterior dimension. No focal splenic lesio ns are seen. Pancreas: Is atrophic. Uncinated process is poorly seen. Adrenal glands: Unremarkable. Kidneys: There is symmetric renal cortical enhancement. The kidneys are normal in size without hydron ephrosis. Bowel: Bowel loops are nondilated. Fluid attenuation within loops of small and large bowel could be s een in diarrheal state. Duodenal wall is thickened at and ill-defined, findings are similar to recent prior study. Peritoneum: There is no intraperitoneal free air or abdominal ascites. Vasculature: The abdominal aorta is normal in course and caliber. Scattered calcifications of aortic wall are seen. Adenopathy: None. Pelvic viscera: Urinary bladder is unremarkable. Status post hysterectomy. Skeletal structures: Osseous structures are diffusely demineralized. Interval development of compress ion fracture deformity of the L2 involving superior endplate and associated with approximately 30 % o f the height loss within the anterior aspect of L2 vertebral body. IMPRESSION: 1. Patchy groundglass opacities within bilateral lower lobes 4 mm groundglass nodule within left low er lobe. Please correlate above-mentioned findings with results of CT chest. 2. Multiple biliary stents, interval development of pneumobilia. Stable mild prominence of intrahepa tic biliary ducts. 3. Thickened duodenal wall. No significant lymphadenopathy seen. 4. Slightly prominent spleen. 5. Interval development of compression fracture deformity of L2, acuity is unknown. Please correlate above-mentioned findings with point tenderness. 6. Atherosclerosis. ACT 112: Positive. There are findings on this exam that require communication between the performing entity and the patient following Patient Test Result Information Act ([place] Act 112) guidelines. The above report was generated using voice recognition software. It may contain grammatical, syntax o r spelling errors. Electronically signed by: Ghada Spears DO 09/02/2020 9:27 AM
[2020-09-02] MEDS: PANTOprazole 40 MG TAB PO SCH (10:31)
[2020-09-02] MEDS: ENOXAPARIN INJ 40 MG/0.4 ML SYR SQ SCH (10:31)
[2020-09-02] MEDS: VANCOMYCIN HCL 1,000 MG in SODIUM CHLORIDE 0.9% 250 ML IV SCH ×2 (12:44→19:32)
--- NOTE | 2020-09-02 12:53 | Electrocardiogram Report ---
Test Reason : Blood Pressure : / mmHG Vent. Rate : 086 BPM Atrial Rate : 086 BPM P-R Int : 132 ms QRS Dur : 082 ms QT Int : 344 ms P-R-T Axes : 062 042 037 degrees QTc Int : 411 ms Normal sinus rhythm Left atrial enlargement Borderline ECG When compared with ECG of 08-NOV-2019 12:51, No significant change Confirmed by Harry Marie ([id number]) on 09/02/2020 12:52:42 PM Referred By: REFERRED SELF Confirmed By:Harry Marie
--- NOTE | 2020-09-02 14:59 | Pharmacy Report ---
Pharmacy Abx Dose Short Note - Date of Service September 02, 2020 - Assessment & Plan Assessment * Ms Alvarez is a 55 year old F receiving Vancomycin/Cefepime/Flagyl for treatment of febrile leukopenia/?neutropenia. * PMH is significant for metastatic duodenal adenocarcinoma (currently receiving chemotherapy), fibromyalgia, endometriosis. Pt previously had gastroduodenostomy w/ J-tube placement -- tube was removed 07/28/20. Plan Vancomycin * Vancomycin 1500mg (~23mg/kg) IV x1, then * Vancomycin 1000mg (~15mg/kg) IV q8h * Patient meets criteria for vancomycin AUC dosing nomogram * AUC/ROSITA is the preferred PK/PD target for vancomycin * Target AUC/ROSITA = 400-600 * AUC guided dosing is effective and associated with decreased risk of nephrotoxicity * Currently, vanc is only ordered for empiric therapy (x48 hours). Will evaluate a vancomycin level to assess for safety at steady-state, if vanc is continued. Cefepime 2gm IV q8h Flagyl 500mg IV q8h Pharmacy will continue to follow and will adjust dose/frequency as necessary. Thank you.
--- NOTE | 2020-09-02 21:27 | Hospitalist Progress Note ---
Date of Service September 02, 2020 Assessment & Plan (1) Fever: Patient is a 55 year old female with PMHx Metastatic duodenal adenocarcinoma, depression, HLD, fibromyalgia, anxiety, GERD, endometriosis, who presents after having a fever of 101.7F and notified by her oncology office to go to the ED for evaluation. Leukopenic Fever (suspect neutropenic) Antineoplastic chemotherapy induced pancytopenia - continues to have elevated temp. throughout the day -Suspected neutropenic fever in patient receiving chemotherapy for metastatic duodenal adenocarcinoma -No obvious source at this time, though with abdominal discomfort, "urine symptoms," consider UTI -Started on Vanc, Cefepime, Flagyl in ED -Will continue Cefepime and Flagyl -Continue Vancomycin due to patient having a port -Blood cultures drawn from peripherals x2 in addition to from port -Urine culture ordered -CT Ab/Pelv stat read without obvious infectious etiology - await final read -CXR without obvious focality with normal lung exam -AM cbc with diff to evaluate ANC -ordered lyme serology Metastatic Duodenal Adenocarcinoma -Follows with [facility] [place] -Zofran PRN nausea -Pain control PRN, currently having no pain -Alk Phos elevated 273, suspect secondary to mets GERD -Continue Protonix Dispo: Med/Surg for monitoring and neutropenic precautions. FEN: low fat, low fiber, low sugar - ensure shakes DVT: Lovenox sq Code: Full Admission and Anticipated Discharge Date Admission Date: September 02, 2020 Supervising Physician Co-Signing Physician Notes Resident Physician Supervision Note: I independently interviewed and examined the patient and verified the staples history and physical, reviewed labs and image studies and agree with resident Dr. Fernando findings and care plan. Subjective Doing well this morning. She was previously on a low fat, low sugar, low fiber diet and it was transitioning to a more normal diet. Review of Systems Review of Systems: Constitutional: admits fevers, and chills to the bone Cardiac: denies chest pain, palpitations GI: admits nausea : admits warmth on urination Physical Exam Constitutional: cooperative Patient appears very tired Eyes: PERRL, conjunctivae normal, anicteric sclerae ENMT: external ear and nose normal, oropharynx normal Neck: trachea midline, no thyromegaly Respiratory: normal respiratory effort, lungs clear to auscultation Cardiovascular: RRR, no murmur, no edema Gastrointestinal (Abdomen): Inspection/Auscultation: normal bowel sounds; abdomen not distended Percussion/Palpation: + abdomen tender (Umbilical and suprapubic tenderness ) Previous J-tube site without erythema or current drainage Musculoskeletal: no cyanosis or clubbing, extremities motor strength 5/5 Skin: no rashes, warm and dry Neurologic: PERRL, EOMI, accommodation nl, no face palsy, no dysarthria Psychiatric: Orientation: alert and oriented x 3 Eye Contact: good eye contact Affect: euthymic affect Results & Data Results & Data ([facility]) Vital Signs (Past 12 Hours) Vital Signs Temp Pulse Resp BP Pulse Ox 09/02/20 15:39 38.8 C H 99 H 16 105/67 95 CBC Results Results Complete Blood Count Results: RBC 2.85 M/uL (4.2-5.4) L 09/02/20 WBC 0.20 K/uL (4.8-10.8) L* 09/02/20 Hgb 9.1 g/dL (12.0-16.0) L 09/02/20 Hct 26.8 % (37-47) L 09/02/20 Plt Count 64 K/uL (130-400) L 09/02/20 Chemistry (BMP) Results BMP Results: Sodium 138 mmol/L (136-145) 09/02/20 Potassium 3.5 mmol/L (3.5-5.1) 09/02/20 Chloride 105 mmol/L (98-107) 09/02/20 BUN 5 mg/dl (7-18) L 09/02/20 Creatinine 0.35 mg/dl (0.6-1.2) L 09/02/20 Glucose 84 mg/dl (70-99) 09/02/20 Resident Activity Tracking Resident Involvement: Resident Care Provided Care Provided: Adult Hospital Medicine (1) Fever Fever type: due to other condition Qualified Code(s): R50.81 - Fever presenting with conditions classified elsewhere
[2020-09-02] MEDS ORDERED: FLUCONAZOLE 200 MG/100 ML BAG IV SCH (22:30)
[2020-09-02] MEDS ORDERED: FLUCONAZOLE 200 MG/100 ML BAG IV ONE (23:30)
[2020-09-03] MEDS: metroNIDAZOLE 500 MG/100 ML BAG IV SCH ×3 (01:00→18:31)
[2020-09-03] MEDS: CEFEPIME 2,000 MG in SYRINGE 0 ML IV SCH ×3 (01:00→17:28)
[2020-09-03] MEDS ORDERED: HEPARIN 100 UNIT/ML 5ML FLUSH FLUSH PRN (03:05)
[2020-09-03] MEDS: VANCOMYCIN HCL 1,000 MG in SODIUM CHLORIDE 0.9% 250 ML IV SCH ×2 (04:15→12:33)
[2020-09-03 06:43] LABS: Hematocrit (blood only) 24.9 % (37-47); Hemoglobin 8.5 g/dL (12.0-16.0); Mean Corpuscular Hemoglobin 31.7 pg (25-34); Mean Corpuscular Hgb Conc 34.1 g/dL (32-36); Mean Corpuscular Volume 92.9 fL (80-100); Mean Platelet Volume 11.2 fL (7.4-10.4); Platelet Count 53 K/uL (130-400); RDW Coefficient of Variation 12.1 % (11.5-14.5); RDW Standard Deviation 41.2 fL (36.4-46.3); Red Blood Count 2.68 M/uL (4.2-5.4); White Blood Count 0.22 K/uL (4.8-10.8)
[2020-09-03 06:48] LABS: BUN Creatinine Ratio 21.7 (10-20); Creatinine Clr Calc Pharmacy 157.6 ml/min; Est GFR (African American) 141.4 ml/min; Potassium 3.1 mmol/L (3.5-5.1)
[2020-09-03 07:56] LABS: Lyme Ab IgG w/WB Rflx Negative (Negative); Lyme Ab IgM w/WB Rflx Negative (Negative)
[2020-09-03] MEDS: ENOXAPARIN INJ 40 MG/0.4 ML SYR SQ SCH (08:10)
[2020-09-03] MEDS: PANTOprazole 40 MG TAB PO SCH (08:10)
--- NOTE | 2020-09-03 09:05 | Hospitalist Progress Note ---
Date of Service September 03, 2020 Assessment & Plan (1) Fever: Patient is a 55 year old female with PMHx Metastatic duodenal adenocarcinoma, depression, HLD, fibromyalgia, anxiety, GERD, endometriosis, who presents after having a fever of 101.7F and notified by her oncology office to go to the ED for evaluation. Leukopenic Fever (suspect neutropenic) Antineoplastic chemotherapy induced pancytopenia Suspected neutropenic fever and patient receiving chemotherapy for metastatic duodenal adenocarcinoma. No obvious source at present, patient endorsing abdominal discomfort, urinary symptoms. Blood cultures pending, urine cultures pending. On admission CT abdomen pelvis without obvious signs of infection, chest x-ray negative. started on Vanco cefepime and Flagyl in the ED, these will be continued pending fever resolution and or culture resolution, speciation and sensitivities. -Had a fever overnight but was responsive to Tylenol -CBC demonstrates pancytopenia Metastatic Duodenal Adenocarcinoma -Follows with [facility] -Zofran PRN nausea -Pain control PRN, currently having no pain -Alk Phos elevated 273, suspect secondary to mets GERD -Continue Protonix Electrolyte derangements Daily BMP replete as indicated Anemia Hemoglobin was 10.7 on presentation, now 8.5. -Suspect secondary to dilutional -No signs or symptoms of acute anemia or bleed -Hemoccult pending Dispo: Med/Surg for monitoring and neutropenic precautions. FEN: low fat, low fiber, low sugar - ensure shakes DVT: Lovenox sq Code: Full Admission and Anticipated Discharge Date Admission Date: September 02, 2020 Results & Data Results & Data ([facility]) Vital Signs (Past 12 Hours) Vital Signs Temp Pulse Resp BP BP Pulse Ox 09/03/20 07:42 37.0 C 75 18 110/70 98 09/02/20 22:46 37.8 C H 84 16 115/69 97 Laboratory Results 09/03/20 09/03/20 09/03/20 Range/Units 05:58 05:58 05:58 WBC 0.22 L* (4.8-10.8) K/uL RBC 2.68 L (4.2-5.4) M/uL Hgb 8.5 L (12.0-16.0) g/dL Hct 24.9 L (37-47) % MCV 92.9 (80-100) fL MCH 31.7 (25-34) pg MCHC 34.1 (32-36) g/dL RDW Std Deviation 41.2 (36.4-46.3) fL RDW Coeff of Sarai 12.1 (11.5-14.5) % Plt Count 53 L (130-400) K/uL MPV 11.2 H (7.4-10.4) fL Immature Gran % (Auto) Cancelled Neut % (Auto) Cancelled Lymph % (Auto) Cancelled Wolfe % (Auto) Cancelled Eos % (Auto) Cancelled Baso % (Auto) Cancelled Neut # (Auto) Cancelled Lymph # (Auto) Cancelled Wolfe # (Auto) Cancelled Eos # (Auto) Cancelled Baso # (Auto) Cancelled Immature Gran # (Auto) Cancelled Neutrophils % (Manual) Cancelled Band Neutrophils % Cancelled Lymphocytes % (Manual) Cancelled Prolymphocyte % Cancelled Reactive Lymphs % (Man) Cancelled Monocytes % (Manual) Cancelled Eosinophils % (Manual) Cancelled Basophils % (Manual) Cancelled Metamyelocytes % (Man) Cancelled Myelocytes % (Man) Cancelled Promyelocytes % (Man) Cancelled Blast Cells % (Manual) Cancelled Plasma Cell % (Manual) Cancelled Other Cells % Cancelled Nucleated RBC % Cancelled Neutrophils # (Manual) Cancelled Band Neutrophils # Cancelled Total Absolute Neuts Cancelled Lymphocytes # (Manual) Cancelled Prolymphocyte # Cancelled Reactive Lymphs # Cancelled Total Abs Lymphocytes Cancelled Monocytes # (Manual) Cancelled Eosinophils # (Manual) Cancelled Basophils # (Manual) Cancelled Metamyelocytes # (Man) Cancelled Myelocytes # (Manual) Cancelled Promyelocytes # (Man) Cancelled Blast Cells # (Man) Cancelled Plasma Cell # (Manual) Cancelled Other Cells # Cancelled Nucleated RBCs # (Man) Cancelled Hypersegmented Neuts Cancelled Hyposegmented Neuts Cancelled Hypogranular Neuts Cancelled Large Granular Lymphs Cancelled # Lrg Granular Lymphs Cancelled Hairy Cells Cancelled Smudge Cells Cancelled Toxic Granulation Cancelled Toxic Vacuolation Cancelled Dohle Bodies Cancelled Marisela Rods Cancelled Hypogranular Platelets Cancelled Clumped Platelets Cancelled Giant Platelets Cancelled Platelet Satelliting Cancelled RBC Morphology Cancelled Polychromasia Cancelled Hypochromasia Cancelled Poikilocytosis Cancelled Basophilic Stippling Cancelled Anisocytosis Cancelled Microcytosis Cancelled Macrocytosis Cancelled Spherocytes Cancelled Pappenheimer Bodies Cancelled Sickle Cells Cancelled Target Cells Cancelled Tear Drop Cells Cancelled Ovalocytes Cancelled Stomatocytes Cancelled Mitchell-Parc Bodies Cancelled Echinocytes Cancelled Acanthocytes (Spur) Cancelled Rouleaux Cancelled RBC Agglutinates Cancelled Schistocytes Cancelled RBC Morph Comment Cancelled Sezary Cell Cancelled Sodium 141 (136-145) mmol/L Potassium 3.1 L (3.5-5.1) mmol/L Chloride 108 H (98-107) mmol/L Carbon Dioxide 27 (21-32) mmol/L Anion Gap 6.0 (3-11) BUN 7 (7-18) mg/dl Creatinine 0.34 L (0.6-1.2) mg/dl Est Cr Clr Drug Dosing 157.6 ml/min Est GFR ( Amer) 141.4 ml/min Est GFR (Non-Af Amer) 122.0 ml/min BUN/Creatinine Ratio 21.7 H (10-20) Glucose 81 (70-99) mg/dl Calcium 8.0 L (8.5-10.1) mg/dl Lyme Disease IgG Ab Negative (Negative) Lyme Disease IgM Ab Negative (Negative) Medications Administered Current Inpatient Medications Acetaminophen (Acetaminophen 325 Mg Tab) 650 mg PO Q4H PRN PRN Reason: pain/fever Stop: 10/02/20 02:06 Last Admin: 09/02/20 23:14 Dose: 650 mg Documented by: Nystatin 30 ml/ Dexamethasone 3.75 mg/ Diphenhydramine HCl 300 mg/ Sucrose 45 ml/Microcrystalline Cellulose 45 ml/ BARCODE IDENTIFIER 1 ea 0 ml PO Q4H PRN PRN Reason: odynophagia Stop: 10/02/20 22:06 Last Admin: 09/03/20 08:10 Dose: 5 ml Documented by: Enoxaparin Sodium (Enoxaparin Inj 40 Mg/0.4 Ml Syr) 40 mg SQ Q24H ZHANE Stop: 10/02/20 07:59 Last Admin: 09/03/20 08:10 Dose: 40 mg Documented by: Heparin Sodium (Porcine) (Heparin 100 Unit/Ml 5ml Flush) 5 ml FLUSH PRN PRN PRN Reason: Flush Stop: 10/03/20 03:04 Last Admin: 09/03/20 05:45 Dose: 5 ml Documented by: Cefepime HCl 2,000 mg/ Syringe 20 mls @ 5 mls/min IV Q8H ZHANE; Protocol Stop: 09/04/20 07:59 Last Admin: 09/03/20 08:10 Dose: 5 mls/min Documented by: Metronidazole (Flagyl) 500 mg in 100 mls @ 100 mls/hr IV Q8H ZHANE Stop: 09/04/20 02:29 Last Infusion: 09/03/20 02:15 Dose: Infused Documented by: Vancomycin HCl 1,000 mg/ (Sodium Chloride) 270 mls @ 200 mls/hr IV Q8H ZHANE Stop: 09/04/20 11:59 Last Infusion: 09/03/20 05:55 Dose: Infused Documented by: Fluconazole (Diflucan) 200 mg in 100 mls @ 100 mls/hr IV Q24H ZHANE; Protocol Stop: 09/15/20 23:29 Last Infusion: 09/02/20 23:30 Dose: Infused Documented by: Miscellaneous Information (Vancomycin Consult Active) 1 ea N/A UD PRN PRN Reason: Consult Stop: 10/02/20 02:06 Ondansetron HCl (Ondansetron Inj 2 Mg/Ml 2 Ml Vial) 4 mg IV Q6H PRN PRN Reason: Nausea Stop: 10/02/20 02:06 Last Admin: 09/02/20 17:25 Dose: 4 mg Documented by: Pantoprazole Sodium (Pantoprazole 40 Mg Tab) 40 mg PO DAILY [facility] Stop: 10/02/20 08:59 Last Admin: 09/03/20 08:10 Dose: 40 mg Documented by: (1) Fever Fever type: due to other condition Qualified Code(s): R50.81 - Fever presenting with conditions classified elsewhere
[2020-09-03] MEDS: POTASSIUM CHLORIDE CRTAB 20 MEQ TABCR PO SCH ×3 (09:51→14:54)
[2020-09-03] MEDS ORDERED: VANCOMYCIN TROUGH ONE (11:30)
--- NOTE | 2020-09-03 13:33 | Pharmacy Report ---
Pharmacy Abx Dose Short Note - Date of Service September 03, 2020 - Assessment & Plan Assessment * Ms Alvarez is a 55 year old F receiving Vancomycin/Cefepime/Flagyl/Fluconazole for treatment of febrile leukopenia/?neutropenia. * PMH is significant for metastatic duodenal adenocarcinoma (currently receiving chemotherapy), fibromyalgia, endometriosis. Pt previously had gastroduodenostomy w/ J-tube placement -- tube was removed 07/28/20. * Today is day #2 of antibiotic therapy. * Per provider notes, plan is to continue abx until fever resolution and/or final culture results available. * Pt was febrile yesterday into last night, but been afebrile thus far today. Plan * Vancomycin * Vanc trough drawn appropriately today prior to the 4th maintenance dose, which should be indicative of steady-state. * Trough level of 19.0 mcg/mL is therapeutic. * Continue dose of 1000 mg IV every 8 hours * Goal trough level for febrile neutropenia: ~18 to 20 mcg/mL * Antibiotics are ordered only "empiric x48 hours" for now. If patient is still receiving vancomycin in a couple of days, will re-evaluate a trough level. * Cefepime 2gm IV q8h * Flagyl 500mg IV q8h * Fluconazole 200mg IV q24h Pharmacy will continue to follow and will adjust dose/frequency as necessary. Thank you.
--- NOTE | 2020-09-03 16:42 | Discharge Summary ---
Date of Service September 03, 2020 Admission HPI Per Admitting Provider Patient is a 55 year old female with PMHx Metastatic duodenal adenocarcinoma, depression, HLD, fibromyalgia, anxiety, GERD, endometriosis, who presents after having a fever of 101.7F earlier this afternoon and notified by her oncology office to go to the ED for evaluation. Patient notes that she started a new chemotherapy on 08/25/20 (Irinotecan) with plans for 21 day doses for a couple of months before repeat images. Patient notes that since starting the chemotherapy she has had worsening nausea, dizziness, "chills in bones," stomach pains, diarrhea progressing towards constipation, and starting today fevers. She denies any SOB, chest pain, chest pressure. She does note a severe lack of appetite in addition to feeling that her "urine felt warmer than usual today." She denies dysuria otherwise. She denies any recent injuries. She does note that she had her J-tube removed on 07/28/20 and the site has been leaking. She has kept it uncovered as advised by her surgeon. She recently switched her oncologic care [facility] to [facility] (most recent visit printed in chart). Med Hx: Metastatic duodenal adenocarcinoma, depression, HLD, fibromyalgia, anxiety, GERD, endometriosis Surg Hx: Hysterectomy, B/L breast reduction, Bypass gastrojejunostomy with subsequent J-tube placement Soc Hx: Quit smoking 16 years ago, no alcohol or illicit drug use. Admission Exam Per Admitting Provider Constitutional: cooperative Patient appears very tired and flat Eyes: PERRL, conjunctivae normal, anicteric sclerae ENMT: external ear and nose normal, oropharynx normal Neck: trachea midline, no thyromegaly Respiratory: normal respiratory effort, lungs clear to auscultation Cardiovascular: RRR, no murmur, no edema Gastrointestinal (Abdomen): Inspection/Auscultation: abdomen normal to inspection and normal bowel sounds; abdomen not distended Percussion/Palpation: + abdomen tender (Umbilical and suprapubic tenderness ) Previous J-tube site without erythema or current drainage Musculoskeletal: no cyanosis or clubbing, extremities motor strength 5/5 Skin: no rashes, warm and dry Neurologic: PERRL, EOMI, accommodation nl, no face palsy, no dysarthria Psychiatric: Orientation: alert and oriented x 3 Eye Contact: + fair eye contact Affect: + flat affect Principal Diagnosis Neutropenic fever Discharge Exam General: No acute distress HEENT: Normocephalic atraumatic Neck: No significant lymphadenopathy, trachea midline, normal to visual inspection Cardiac: Regular rate and rhythm, normal S1, normal S2, I did not appreciated any significant murmurs rubs or gallops, I did not appreciate any significant pedal edema, No calf tenderness, capillary refill is less than 3 seconds Respiratory: Clear to auscultation bilaterally with symmetrical chest rise, I did not appreciate any significant wheezes, rales, rhonchi, no increased work of breathing GI: Normal bowel sounds, soft, nontender in all 4 quadrants, nondistended MSK: No sensory or motor changes, moves all extremities without issue, extremities are warm and well-perfused Skin: [place], clean, dry, intact. Neuro: Alert and oriented x4 Psych: Calm, cooperative, logical thought process Discharge Data Allergies Allergy/AdvReac Type Severity Reaction Status Date / Time epinephrine Allergy Intermediate heart Verified 09/01/20 21:31 palpitations, itching, rash, muscle pain lidocaine Allergy Intermediate heart Verified 09/01/20 21:31 palpitations, itching rash muscle pain Penicillins Allergy Mild rash and Verified 09/01/20 21:31 fever amoxicillin AdvReac Mild fever, rash Verified 09/01/20 21:31 Consultations 09/02/20 00:01 ED Decision to Admit Stat Ordered Studies 09/01/20 21:44 CT abd pelvis IV con only Urgent CT angio chest PE protocol Urgent Hospital Course (1) Fever: Patient is a 55 year old female with PMHx Metastatic duodenal adenocarcinoma, depression, HLD, fibromyalgia, anxiety, GERD, endometriosis, who presents after having a fever of 101.7F and notified by her oncology office to go to the ED for evaluation. Leukopenic Fever (suspect neutropenic) Antineoplastic chemotherapy induced pancytopenia Suspected neutropenic fever and patient receiving chemotherapy for metastatic duodenal adenocarcinoma. No obvious source at present, patient endorsing abdominal discomfort, urinary symptoms. CT head, CXR neg. started on Vanco, cefepime and Flagyl in the ED and continued, Blood cx neg at 24hrs. Suspect fever is likely side effect of chemotherapy. Patient requesting discharge today this is reasonable as long as she monitors for symptom development. Counseled the patient to be alert for concerning signs or symptoms including but not limited to fevers unresponsive to NSAIDs, shaking chills, persistent nausea, vomiting, or diarrhea, significant unrelenting pain, severe headache, chest pain, chest pressure, worsening or lack of improvement of the symptoms for which they presented. Should the patient experience any of these they are to contact our office for further instruction, return for follow- up, or proceed directly to the emergency department for further evaluation and management. Metastatic Duodenal Adenocarcinoma -Follows with [facility] GERD -Continue Protonix Anemia Chronic -No signs or symptoms of acute anemia or bleed Carlos Chaudhari MD PGY 2, FCM This chart was completed utilizing [employer] voice recognition software. Grammatical errors, random word insertions, pronoun errors, and in complete sentences are an occasional consequence of the system. Any questions or concerns about the content, text, or information contained within the body of this dictation should be addressed directly to the physician for clarification. Total Time Total Time Spent Total Time Spent (In Minutes): 52 Discharge Plan Discharge Items Patient Disposition: Home - Self-Care Reason For Visit: LEUKOPENIC FEVER Discharge Diagnosis: Neutropenic fever thought to be secondary to chemotherapy Activity: Resume your previous activity Non-emergency contact: Primary Care Provider and Oncologist Call non-emergency contact if: you have any medication questions Follow-up/Referrals: Parveen Griggs MD [Primary Care Provider] - Diet: Regular Addtl Attending Provider Instructions: Care instructions: You were admitted to [facility] for treatment of neutropenic fever. Numerous labs were obtained including microbiology, and other indicators of infection, all were negative. You made significant improvement with fluid hydration overnight, having very minor fevers. We suspect your fevers are secondary to your underlying disease and therapy for it. While hospitalized there was a abnormality in your hemoglobin. We repeated this test prior to discharge and the abnormality resolved. We recommend you follow-up with your primary care provider on discharge to obtain a CBC. As we discussed prior to discharge it is very important you monitor your symptoms and should you have a reoccurrence of any of them we proceed to the emergency department for further evaluation. Counseled the patient to be alert for concerning signs or symptoms including but not limited to fevers unresponsive to NSAIDs, shaking chills, persistent nausea, vomiting, or diarrhea, significant unrelenting pain, severe headache, chest pain, chest pressure, worsening or lack of improvement of the symptoms for which they presented. Should the patient experience any of these they are to contact our office for further instruction, return for follow-up, or proceed directly to the emergency department for further evaluation and management. A discharge summary will be sent to your primary care physician to ensure continuity of care. Please bring this discharge summary with you to your next office appointment so that your provider can review it at that time. Follow-up appointments: - Keep all your follow-up appointments as already scheduled. If you cannot make an appointment, notify your provider. - Please call to request a follow-up appointment with your primary care physi margaret within one week of discharge. Please let us know if you are unable to obtain an appointment Medications: - Your medication list has been reviewed and reconciled upon discharge to ensure accuracy and continuity of care. - You are provided with a list of all your current medications at this time. Please review this list closely and make note of any changes. - Please take all of your medications exactly as prescribed. - Tell your primary care provider if you cannot afford your medications. - Call your primary care provider if you are having any side effects or any other problems. - Call your primary care provider before taking any over the counter medications or supplements, including herbals and vitamins, because some of these may interact with your current medications and/or make your symptoms worse. Symptoms: Please call your primary care provider for symptoms including, but not limited to: fevers (temperatures greater than 100.4), chills, intractable nausea or vomiting, diarrhea, rash, shortness of breath, bleeding, pain, or if you experience any worsening of the symptoms that brought you to the hospital. For EMERGENCY and VERY SERIOUS health-related issues, such as chest pain, shortness of breath, or sudden onset of the symptoms that brought you to the hospital, you may need to call 911 or go directly to the Emergency Room It has been our privilege to take care of you during your hospital stay. And Above All Else Feel Better! Best Wishes, Carlos Chaudhari MD PGY2 Resident, Family & Community Medicine [facility] Residency at [facility] Medical [facility] - [address], [address] MC: [address] [place] [address], [place] [address] Pending Studies at Discharge: No Stand-Alone Forms: My [facility] Medications and DC Order Prescriptions: Continued pantoprazole 40 mg tablet,delayed release (DR/EC) 40 mg PO DAILY RF: 0 ondansetron HCl 8 mg tablet 8 mg PO Q8 RF: 0 zinc 50 mg Capsule 50 mg PO TID RF: 0 cholecalciferol (vitamin D3) [Vitamin D3] 50 mcg (2,000 unit) Tablet 50 mcg PO DAILY RF: 0 Discharge Orders: Discharge Order (Routine); Ordered 09/03/20 Ordered By: Carlos Green/Other Patient Handouts: Neutropenia Admission Data Admit Date/Time: 09/02/20 01:04 Attending Provider: Jamee Bruno Admit Provider: Navi Dobson Primary Care Provider: Parveen Griggs Other Providers: Sharon Chaudhari Other Interventions: Discharge Summary Assessment (RN) Last Done: 09/03/20 17:33 Supervising Physician Co-Signing Physician Notes Resident Physician Supervision Note: I independently interviewed and examined the patient and verified the staples history and physical, reviewed labs and image studies and agree with resident Dr. Carlos Chaudhari findings and care plan. Resident Activity Tracking Resident Involvement: Resident Care Provided Care Provided: Adult Hospital Medicine
== END 2020-09-03 18:44 | disposition home or self-care (01) | DRG 809 ==
LOC: ED 20:25 → SUATTDRO 09-02 01:04 → 3N 09-02 01:04